=== PATIENT | male | born 1965 | race Caucasian/White ===

== ENCOUNTER 2020-01-15 12:47 | Emergency (ER) | payer SELFPAY ==
[~2020-01-15] VITALS: Ht 182.9 cm; Wt 86.4 kg
[2020-01-15] MEDS ORDERED: thiamine 100mg/ml 2ml inj. IV ONE (13:10)
[2020-01-15] MEDS ORDERED: folic acid 1mg/0.2ml inj IV ONE (13:10)
[2020-01-15] MEDS ORDERED: normal saline 1000ML IV soln IVB ONE (13:10)
[2020-01-15 13:37] LABS: BASOPHILS % (AUTO) 0.3 % (0-1); EOSINOPHILS % (AUTO) 0.2 % (0-6); HEMATOCRIT 45.3 % (42.0-52.0); HEMOGLOBIN 15.8 g/dl (14.0-17.9); LYMPHOCYTES # (AUTO) 0.5 X10'3 (1.1-4.8); LYMPHOCYTES % (AUTO) 5.7 % (21-51); MEAN CORPUSCULAR HGB CONC 34.9 g/dL (33.0-36.5); MEAN CORPUSCULAR VOLUME 97.3 FL (78-98); MEAN PLATELET VOLUME 8.2 FL (7.4-10.4); MONOCYTES # (AUTO) 0.6 X10'3 (0-0.9); NEUTROPHILS # (AUTO) 6.8 X10'3 (1.8-7.7); NEUTROPHILS % (AUTO) 85.8 % (42-75); PLATELET COUNT 118 X10'3 (140-440); RED BLOOD COUNT 4.66 X10'6 (4.70-6.10); RED CELL DISTRIBUTION WIDTH 13.8 % (11.5-14.5)
[2020-01-15 13:51] LABS: ALANINE AMINOTRANSFERASE 67 U/L (12-78); ALBUMIN 3.4 G/DL (3.4-5.0); ALBUMIN/GLOBULIN RATIO 0.7 (1.1-1.5); ALKALINE PHOSPHATASE 106 IU/L (46-116); ANION GAP 9 (8-16); BILIRUBIN,TOTAL 1.5 MG/DL (0.1-1.0); BLOOD UREA NITROGEN 3 MG/DL (7-18); BUN/CREATININE RATIO 3.3 (5.4-32.0); CALCIUM 10.1 MG/DL (8.5-10.1); CHLORIDE 88 MMOL/L (99-107); GLUCOSE 152 MG/DL (70-104); SODIUM 123 MMOL/L (135-145); TOTAL CARBON DIOXIDE 25.8 MMOL/L (24-32); TOTAL PROTEIN 8.1 G/DL (6.4-8.2); eGFR 88 ML/MIN
[2020-01-15 13:55] LABS: ASPARTATE AMINO TRANSFERASE 82 U/L (10-37); ETHANOL < 0.010 GM/DL (0.0-0.010); POTASSIUM 3.9 MMOL/L (3.5-5.1); TROPONIN I < 0.04 NG/ML (0.0-0.05)
[2020-01-15] MEDS ORDERED: metoprolol tartrate 1mg/ml inj IV ONE (14:20)
[2020-01-15 17:05] VITALS: BP 137/92
== END 2020-01-15 17:08 | disposition home or self-care (01) ==
LOC: ER 12:49
DX: I16.0 Hypertensive urgency (principal); F10.29 Alcohol dependence with unspecified alcohol-induced disorder; E87.1 Hypo-osmolality and hyponatremia; R55 Syncope and collapse; F17.200 Nicotine dependence, unspecified, uncomplicated
CPT/HCPCS: 36415; 71045; 80053; 80320; 82140; 82948; 84484; 85025; 93005; 96361; 96374; 96375; 99285; J3411; J3490; J7030

== ENCOUNTER 2020-10-25 20:08 | Inpatient (IN) | payer MEDICAID ==
[~2020-10-25] VITALS: Ht 182.9 cm; Wt 98.5 kg
--- NOTE | 2020-10-26 00:15 | NUR ---
PT FOUND PRONE AT BUS STOP. PER FAMILY, PT WAS WALKING, STOPPED, THEN TRIPPED OVER HIS FEET AND FELL DOWN. EMT LEBRON RSPONDED TO CALL AT BUS STOP AND REPORTED PT HAVING SEIZURE LIKE ACTIVITY FACEDOWN. PT HAS LAC TO FOREHEAD APPROX [id number]. SKIN TEAR TO RIGHT FOREARM. LARGE ABRASION TO RIGHT CHEEK. C-COLLAR PLACED. PLACED PT ON RNEY AND WHEELED TO ROOM FOR EVALUATION.
[2020-10-26] MEDS ORDERED: LORazepam 2 mg/ml vial IV STA (00:26)
[2020-10-26] MEDS ORDERED: LORazepam 2 mg/ml vial ONE (00:28)
[2020-10-26] MEDS ORDERED: levetiracetam inj 1,000 MG in normal saline 100ml IV soln 90 ML IV STA (00:31)
[2020-10-26] MEDS ORDERED: LIDOcaine 1% W/epiNEPHrine 1:200,000 10ml vial IJ ONE (00:35)
[2020-10-26] MEDS ORDERED: TETanus/Pertussis (Acell)/Diphther VAC/PF (Tdap-Adult) 0.5ml syringe IMVAC ONE (00:35)
[2020-10-26] MEDS ORDERED: LIDOcaine 1% W/epiNEPHrine 1:100,000 20ml vial IJ ONE (00:40)
[2020-10-26 00:52] LABS: ALANINE AMINOTRANSFERASE 61 U/L (12-78); ALBUMIN 3.2 G/DL (3.4-5.0); ALBUMIN/GLOBULIN RATIO 0.7 (1.1-1.5); ALKALINE PHOSPHATASE 133 IU/L (46-116); ANION GAP 17 (8-16); ASPARTATE AMINO TRANSFERASE 63 U/L (10-37); BILIRUBIN,TOTAL 2.5 MG/DL (0.1-1.0); BLOOD UREA NITROGEN 8 MG/DL (7-18); BUN/CREATININE RATIO 6.4 (5.4-32.0); CALCIUM 8.5 MG/DL (8.5-10.1); CHLORIDE 86 MMOL/L (99-107); CREATININE 1.25 MG/DL (0.60-1.10); GLUCOSE 123 MG/DL (70-104); LIPASE < 50 U/L (73-393); MAGNESIUM 2.1 MG/DL (1.5-2.4); POTASSIUM 3.4 MMOL/L (3.5-5.1); SODIUM 124 MMOL/L (135-145); TOTAL CARBON DIOXIDE 21.5 MMOL/L (24-32); TOTAL PROTEIN 7.6 G/DL (6.4-8.2); eGFR 60 ML/MIN
[2020-10-26 00:53] LABS: ETHANOL < 0.010 GM/DL (0.0-0.010)
[2020-10-26] MEDS ORDERED: LORazepam 2 mg/ml vial IV ONE ×3 (01:00→04:00)
--- NOTE | 2020-10-26 01:00 | NUR ---
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 He is combative and needs drugs.
[2020-10-26] MEDS ORDERED: haloperidol lactate 5mg/ml inj IM ONE ×2 (01:05→13:10)
[2020-10-26 01:24] LABS: BASOPHILS % (AUTO) 0.4 % (0-1); EOSINOPHILS % (AUTO) 0.2 % (0-6); HEMATOCRIT 51.8 % (42.0-52.0); HEMOGLOBIN 17.6 g/dl (14.0-17.9); LYMPHOCYTES # (AUTO) 1.4 X10'3 (1.1-4.8); LYMPHOCYTES % (AUTO) 13.6 % (21-51); MEAN CORPUSCULAR HEMOGLOBIN 33.8 PG (27.0-31.0); MEAN CORPUSCULAR HGB CONC 33.9 g/dL (33.0-36.5); MEAN CORPUSCULAR VOLUME 99.7 FL (78-98); MEAN PLATELET VOLUME 8.6 FL (7.4-10.4); MONOCYTES # (AUTO) 1.4 X10'3 (0-0.9); MONOCYTES % (AUTO) 14.2 % (2-12); NEUTROPHILS # (AUTO) 7.3 X10'3 (1.8-7.7); NEUTROPHILS % (AUTO) 71.6 % (42-75); PLATELET COUNT 88 X10'3 (140-440); WHITE BLOOD COUNT 10.1 X10'3 (4.5-11.0)
[2020-10-26] MEDS ORDERED: normal saline 1000ml 1,000 ML IV SCH ×2 (02:50→04:45)
[2020-10-26] MEDS ORDERED: thiamine inj. 100 MG in normal saline 100ml IV soln 100 ML IV ONE (04:10)
[2020-10-26] MEDS ORDERED: folic acid 1mg/0.2ml inj IV ONE (04:15)
[2020-10-26] MEDS ORDERED: thiamine 100mg/ml 2ml inj. IV ONE ×2 (04:15→04:45)
[2020-10-26 04:26] LABS: CLARITY,URINE CLEAR (Clear); COLOR,URINE YELLOW (Yellow); GLUCOSE, URINE NEGATIVE (Neg); KETONES,URINE TRACE mg/dl (Neg); LEUKOCYTE ESTERASE ,URINE NEGATIVE (Neg); NITRITES, URINE NEGATIVE (Neg); OCCULT BLOOD,URINE NEGATIVE (Neg); PROTEIN,URINE NEGATIVE (Neg)
[2020-10-26 04:38] LABS: UA COLLECTION TYPE FOLEY CATH
[2020-10-26 04:42] LABS: URINE AMPHETAMINE SCREEN NEGATIVE (Neg); URINE BARBITUATE SCREEN NEGATIVE (Neg); URINE BENZODIAZEPINES SCREEN NEGATIVE (Neg); URINE CANNABINOID SCREEN POSITIVE (Neg); URINE COCAINE SCREEN NEGATIVE (Neg); URINE METHADONE SCREEN NEGATIVE (Neg); URINE OPIATE SCREEN NEGATIVE (Neg); URINE PHENCYCLIDINE SCREEN NEGATIVE (Neg)
[2020-10-26] MEDS ORDERED: mag hydrox/Alum hydrox/simeth 30ml oral suspension PO PRN (04:45)
[2020-10-26] MEDS ORDERED: magnesium hydroxide 30ml (MOM) UD suspension PO PRN (04:45)
[2020-10-26] MEDS ORDERED: ondansetron/PF 4mg/2ml inj IV PRN (04:45)
[2020-10-26] MEDS ORDERED: HYDROcodone/acetaminophen 5mg/325mg tablet PO PRN (04:45)
[2020-10-26] MEDS ORDERED: diphenhydrAMINE 25mg capsule PO PRN (04:45)
[2020-10-26] MEDS ORDERED: ondansetron 4mg rapidly disintigrating tab PO PRN (04:45)
[2020-10-26] MEDS ORDERED: HYDROcodone/acetaminophen 10/325mg tab PO PRN (04:45)
[2020-10-26] MEDS ORDERED: potassium Cl 20 mEq SR tablet PO PRN ×2 (04:45)
[2020-10-26] MEDS ORDERED: morphine 2 MG/ML inj. syringe IV PRN ×2 (04:45)
[2020-10-26] MEDS ORDERED: bisacodyl 10mg suppository rectal RC PRN (04:45)
[2020-10-26] MEDS ORDERED: HYDROmorphone inj. 0.5 MG/0.5 ML DISP.SYRIN IV PRN (04:45)
[2020-10-26] MEDS ORDERED: haloperidol lactate 5mg/ml inj IM PRN (04:45)
[2020-10-26] MEDS ORDERED: diphenhydrAMINE 50 mg/ml inj IV PRN (04:45)
[2020-10-26] MEDS ORDERED: acetaminophen 325mg tablet PO PRN (04:45)
[2020-10-26] MEDS ORDERED: dextrose 50%-water 50ml dispensing syringe IV PRN (04:45)
[2020-10-26] MEDS ORDERED: potassium Cl 40MEQ/1/2NS 520ml 520 ML IV PRN (04:45)
[2020-10-26] MEDS ORDERED: sodium chloride 3% IV.soln 100 ML IV ONE (04:50)
[2020-10-26 05:24] LABS: HEMOGLOBIN A1C 5.4 % (4.5-6.2)
[2020-10-26] MEDS: LORazepam 2 mg/ml vial IV PRN ×8 (05:58→23:02)
[2020-10-26 06:15] LABS: ANION GAP 8 (8-16); BLOOD UREA NITROGEN 6 MG/DL (7-18); BUN/CREATININE RATIO 8.2 (5.4-32.0); CHLORIDE 101 MMOL/L (99-107); CREATINE KINASE 189 U/L (39-308); CREATININE 0.73 MG/DL (0.60-1.10); GLUCOSE 82 MG/DL (70-104); MAGNESIUM 1.5 MG/DL (1.5-2.4); PHOSPHORUS 2.5 MG/DL (2.3-4.5); SODIUM 133 MMOL/L (135-145); eGFR > 90 ML/MIN
[2020-10-26 06:20] LABS: POTASSIUM 2.4 MMOL/L (3.5-5.1)
[2020-10-26] MEDS ORDERED: calcium gluconate inj. 1 GM in normal saline 100ml IV soln 100 ML IV ONE (06:25)
[2020-10-26] MEDS ORDERED: CALCIUM GLUC 1gm/50ml NACL,iso 50 ML IV ONE (06:25)
[2020-10-26] MEDS ORDERED: magnesium 2GM in 50ml NS 50 ML IV ONE (06:25)
--- NOTE | 2020-10-26 07:34 | NUR ---
received order from dr. rojas for ij access.
[2020-10-26] MEDS ORDERED: ceFAZolin/D5W- 1GM premix 50 ML IV SCH (07:35)
--- NOTE | 2020-10-26 07:45 | NUR ---
Patient in ED. I have received report from VIKKI Camarena and had the opportunity to ask questions and assume patient care.
[2020-10-26] MEDS: docusate sod 100mg capsule PO SCH ×2 (08:00→19:25)
[2020-10-26] MEDS: K and/or MAG REPLACEMENT MC SCH ×2 (08:00→20:00)
[2020-10-26] MEDS ORDERED: folic acid inj. 2 MG, thiamine inj. 100 MG, MVI, adult No.4 with vit. K 10 ML in dextro... IV SCH ×4 (08:00)
[2020-10-26] MEDS: heparin, porcine 5000 units/ml vial SQ SCH ×2 (08:00→20:00)
[2020-10-26] MEDS ORDERED: etomidate 2mg/ml inj. ONE (08:00)
[2020-10-26] MEDS ORDERED: sod chloride 0.9% 10ml flush syringe IV ONE (08:00)
[2020-10-26 08:14] LABS: PARTIAL THROMBOPLASTIN TIME 31 SECONDS (22-32)
[2020-10-26 08:45] VITALS: BP 145/85
[2020-10-26] MEDS: levetiracetam inj 500 MG in normal saline 100ml IV soln 95 ML IV SCH ×2 (10:11→19:25)
[2020-10-26] MEDS: nicotine 21mg patch - 24 hr TD SCH (10:12)
[2020-10-26] MEDS: pantoprazole 40 MG vial IV SCH (10:12)
[2020-10-26 11:00] VITALS: BP 149/91
[2020-10-26 11:39] LABS: ABG BASE EXCESS -2.1 mmol/L (-2.0-2.0); ABG HCO3 24.2 mmol/L (22.0-26.0); ABG OXYGEN SATURATION 92.7 % (94-97); ABG PO2 (T) 73.5 mmHg (75.0-100.0); ALLEN'S TEST POSITIVE; FCOHb 2.2 % (0.0-3.9); FLOW 5 L/min; FMetHb 0.2 % (0.0-1.5); FO2Hb 90.5 % (94-97); TOTAL HEMOGLOBIN 15.5 G/dl (14.0-18.0)
[2020-10-26] MEDS ORDERED: PERFLUTREN PROTEIN-A MICROSPHR (Optison) 0.22 MG/ML 3ML VIAL IV PRN (12:05)
[2020-10-26 12:51] LABS: ANION GAP 10 (8-16); CHLORIDE 98 MMOL/L (99-107); GLUCOSE 99 MG/DL (70-104); POTASSIUM 3.8 MMOL/L (3.5-5.1); SODIUM 131 MMOL/L (135-145); TOTAL CARBON DIOXIDE 22.9 MMOL/L (24-32)
[2020-10-26 12:52] LABS: ALANINE AMINOTRANSFERASE 49 U/L (12-78); ALBUMIN 2.4 G/DL (3.4-5.0); ALBUMIN/GLOBULIN RATIO 0.7 (1.1-1.5); ALKALINE PHOSPHATASE 103 IU/L (46-116); ASPARTATE AMINO TRANSFERASE 49 U/L (10-37); BASOPHILS % (AUTO) 0.1 % (0-1); BILIRUBIN,TOTAL 1.7 MG/DL (0.1-1.0); BLOOD UREA NITROGEN 6 MG/DL (7-18); BUN/CREATININE RATIO 9.7 (5.4-32.0); CALCIUM 7.4 MG/DL (8.5-10.1); CREATININE 0.62 MG/DL (0.60-1.10); EOSINOPHILS % (AUTO) 0.2 % (0-6); HEMATOCRIT 44.9 % (42.0-52.0); LYMPHOCYTES # (AUTO) 0.7 X10'3 (1.1-4.8); LYMPHOCYTES % (AUTO) 7.9 % (21-51); MEAN CORPUSCULAR HEMOGLOBIN 33.7 PG (27.0-31.0); MEAN CORPUSCULAR HGB CONC 33.4 g/dL (33.0-36.5); MEAN PLATELET VOLUME 8.3 FL (7.4-10.4); MONOCYTES # (AUTO) 1.1 X10'3 (0-0.9); MONOCYTES % (AUTO) 11.9 % (2-12); NEUTROPHILS # (AUTO) 7.5 X10'3 (1.8-7.7); NEUTROPHILS % (AUTO) 79.9 % (42-75); PLATELET COUNT 73 X10'3 (140-440); RED BLOOD COUNT 4.44 X10'6 (4.70-6.10); TOTAL PROTEIN 5.9 G/DL (6.4-8.2); WHITE BLOOD COUNT 9.4 X10'3 (4.5-11.0); eGFR > 90 ML/MIN
--- NOTE | 2020-10-26 13:09 | NUR ---
Paged Dr. Tierney PAGER ID: [phone] MESSAGE: UBALDO Maya [id number]; patient agitated and trying to climb out of bed. Yani FLOREZ [phone]
[2020-10-26 15:00] VITALS: BP 153/87
[2020-10-26] MEDS: haloperidol lactate 5mg/ml inj IM PRN ×3 (15:24→22:47)
[2020-10-26 18:00] VITALS: BP 129/85
--- NOTE | 2020-10-26 18:15 | NUR ---
Patient in room PCU 3013. I have received report from Yani FLOREZ and had the opportunity to ask questions and assume patient care.
--- NOTE | 2020-10-26 18:24 | NUR ---
Problems reprioritized. Patient report given, questions answered & plan of care reviewed with VIKKI Carlin.
[2020-10-26] MEDS ORDERED: temazepam 15mg capsule PO PRN (21:00)
[2020-10-26 22:00] VITALS: BP 154/97
[2020-10-27] VITALS (15 sets, daily range): BP systolic 87–147; BP diastolic 56–104
--- NOTE | 2020-10-27 06:15 | NUR ---
Patient in room ICU 2042. I have received report from VIKKI Carlin and had the opportunity to ask questions and assume patient care.
[2020-10-27 07:43] LABS: BASOPHILS % (AUTO) 0.2 % (0-1); EOSINOPHILS % (AUTO) 0.2 % (0-6); HEMATOCRIT 43.7 % (42.0-52.0); HEMOGLOBIN 14.6 g/dl (14.0-17.9); LYMPHOCYTES # (AUTO) 0.5 X10'3 (1.1-4.8); LYMPHOCYTES % (AUTO) 4.5 % (21-51); MEAN CORPUSCULAR HEMOGLOBIN 33.6 PG (27.0-31.0); MEAN CORPUSCULAR HGB CONC 33.3 g/dL (33.0-36.5); MEAN PLATELET VOLUME 8.3 FL (7.4-10.4); MONOCYTES # (AUTO) 1.3 X10'3 (0-0.9); MONOCYTES % (AUTO) 11.7 % (2-12); NEUTROPHILS # (AUTO) 8.9 X10'3 (1.8-7.7); NEUTROPHILS % (AUTO) 83.4 % (42-75); PLATELET COUNT 74 X10'3 (140-440); RED BLOOD COUNT 4.33 X10'6 (4.70-6.10); RED CELL DISTRIBUTION WIDTH 16.1 % (11.5-14.5); WHITE BLOOD COUNT 10.7 X10'3 (4.5-11.0)
[2020-10-27 07:57] LABS: ALANINE AMINOTRANSFERASE 46 U/L (12-78); ALBUMIN 2.3 G/DL (3.4-5.0); ALBUMIN/GLOBULIN RATIO 0.7 (1.1-1.5); ALKALINE PHOSPHATASE 94 IU/L (46-116); AMYLASE 13 U/L (25-115); ANION GAP 12 (8-16); ASPARTATE AMINO TRANSFERASE 48 U/L (10-37); BILIRUBIN,TOTAL 1.4 MG/DL (0.1-1.0); BLOOD UREA NITROGEN 5 MG/DL (7-18); BUN/CREATININE RATIO 8.9 (5.4-32.0); CALCIUM 7.3 MG/DL (8.5-10.1); CHLORIDE 99 MMOL/L (99-107); CHOL/HDL RATIO 1.9 (0.00-4.99); CHOLESTEROL 89 MG/DL (0-200); CREATININE 0.56 MG/DL (0.60-1.10); GLUCOSE 61 MG/DL (70-104); HDL CHOLESTEROL 48 MG/DL (35-60); LDL CHOLESTEROL 20 MG/DL (50-100); LIPASE < 50 U/L (73-393); MAGNESIUM 2.2 MG/DL (1.5-2.4); PHOSPHORUS 3.2 MG/DL (2.3-4.5); SODIUM 135 MMOL/L (135-145); TOTAL CARBON DIOXIDE 24.4 MMOL/L (24-32); TOTAL PROTEIN 5.8 G/DL (6.4-8.2); TRIGLYCERIDES 64 MG/DL (20-135); eGFR > 90 ML/MIN
[2020-10-27 08:00] LABS: POTASSIUM 2.9 MMOL/L (3.5-5.1)
[2020-10-27] MEDS: heparin, porcine 5000 units/ml vial SQ SCH ×2 (08:00→20:00)
[2020-10-27] MEDS: docusate sod 100mg capsule PO SCH ×2 (08:00→20:00)
[2020-10-27] MEDS: K and/or MAG REPLACEMENT MC SCH (08:00)
--- NOTE | 2020-10-27 08:42 | NUR ---
Paged Dr. Tierney PAGER ID: [phone] MESSAGE: RE Alec Maya [id number]; potassium 2.9; respirations at 37, saturation 89. Placed back on bipap now 02sat 98% and paged RT to assess. Yani [id number]
[2020-10-27] MEDS: pantoprazole 40 MG vial IV SCH ×2 (08:49→09:45)
[2020-10-27] MEDS: levetiracetam inj 500 MG in normal saline 100ml IV soln 95 ML IV SCH ×2 (08:49→20:10)
[2020-10-27] MEDS: nicotine 21mg patch - 24 hr TD SCH (08:52)
[2020-10-27] MEDS ORDERED: flumazenil 0.1 mg/ml inj. IV ONE (09:25)
[2020-10-27 09:26] LABS: ABG BASE EXCESS -1.4 mmol/L (-2.0-2.0); ABG OXYGEN SATURATION 75.6 % (94-97); ABG PCO2 (T) 38.2 mmHg (35.0-48.0); ABG PO2 (T) 40.2 mmHg (75.0-100.0); ALLEN'S TEST POSITIVE; FCOHb 1.4 % (0.0-3.9); FMetHb 0.3 % (0.0-1.5); FO2Hb 74.3 % (94-97); TOTAL HEMOGLOBIN 15.8 G/dl (14.0-18.0)
[2020-10-27 09:39] LABS: ABG BASE EXCESS -1.1 mmol/L (-2.0-2.0); ABG OXYGEN SATURATION 96.3 % (94-97); ABG PO2 (T) 83.9 mmHg (75.0-100.0); ALLEN'S TEST POSITIVE; FCOHb 1.3 % (0.0-3.9); FMetHb 0.3 % (0.0-1.5); FO2Hb 94.8 % (94-97); TOTAL HEMOGLOBIN 15.7 G/dl (14.0-18.0)
[2020-10-27] MEDS ORDERED: magnesium Cl slow-release 64mg tablet PO PRN (09:45)
[2020-10-27] MEDS ORDERED: albuterol 2.5 MG/3 ML nebule NEB PRN (09:45)
[2020-10-27] MEDS ORDERED: magnesium 2GM in 50ml NS 50 ML IV PRN (09:45)
[2020-10-27] MEDS ORDERED: levetiracetam inj 500 MG in normal saline 100ml IV soln 95 ML IV SCH (09:45)
[2020-10-27] MEDS ORDERED: sodium phosphate inj. 15 MMOL in dextrose 5%-water 250 ML IV PRN (09:45)
[2020-10-27] MEDS ORDERED: dextrose 50%-water 50ml dispensing syringe IV PRN ×2 (09:45)
[2020-10-27] MEDS ORDERED: potassium Cl 20 mEq SR tablet PO PRN ×2 (09:45)
[2020-10-27] MEDS ORDERED: Neutra Phos packet PO PRN (09:45)
[2020-10-27] MEDS ORDERED: haloperidol lactate 5mg/ml inj IM PRN (09:45)
[2020-10-27] MEDS ORDERED: thiamine 100mg/ml 2ml inj. IV ONE (09:45)
[2020-10-27] MEDS ORDERED: magnesium 4gm in 100ml NS 100 ML IV PRN (09:45)
[2020-10-27] MEDS: K, MAG and/or Phos replacement - Verify level? MC SCH (09:45)
[2020-10-27] MEDS ORDERED: sodium phosphate inj. 30 MMOL in dextrose 5%-water 250 ML IV PRN (09:45)
--- NOTE | 2020-10-27 10:00 | NUR ---
Called report to Saumya in ICU. Patient will be transferred to .
--- NOTE | 2020-10-27 10:10 | NUR ---
Patient in room ICU 2042. I have received report from Saumya FLOREZ ICU charge and had the opportunity to ask questions and assume patient care.
--- NOTE | 2020-10-27 10:35 | NUR ---
[employer] did not scan this AM. Haldol was given at 0830. Administration did not save due to faulty computer equipment.
[2020-10-27] MEDS: sodium chloride 0.45% 1,000 ML IV SCH ×2 (10:41→23:05)
--- NOTE | 2020-10-27 10:52 | NUR ---
Tristin Consult: Pt admitted w/ seizures. Pt currently w/ laceration on forehead and skin tear on R arm s/p fall d/t seizures. No open wounds noted. Will continue to monitor. Addendum: 10/27/20 at [address] Amended: Links added.
[2020-10-27 10:55] LABS: AMMONIA < 10 UMOL/L (11-32)
[2020-10-27] MEDS ORDERED: thiamine inj. 100 MG in normal saline 100ml IV soln 100 ML IV ONE (11:00)
--- NOTE | 2020-10-27 11:02 | NUR ---
verbal order from MD pretty stop 1/2ns at 75. Start D5 1/2 NS at 75ML/HR.
[2020-10-27 11:35] LABS: LACTIC SEPSIS 0.9 MMOL/L (0.4-2.0)
[2020-10-27] MEDS: dextrose 5%-1/2 normal saline 1,000 ML IV SCH (12:25)
[2020-10-27] MEDS: potassium Cl 40MEQ/1/2NS 520ml 520 ML IV PRN ×2 (14:08→19:31)
[2020-10-27] MEDS ORDERED: iohexol 300mg/ml 100ml inj. ONE (14:44)
[2020-10-27] MEDS: ipratropium/albuterol 3ml nebule NEB SCH ×3 (15:22→23:13)
[2020-10-27 15:40] LABS: ABG BASE EXCESS 1.5 mmol/L (-2.0-2.0); ABG HCO3 24.1 mmol/L (22.0-26.0); ABG OXYGEN SATURATION 95.9 % (94-97); ABG PCO2 (T) 34.6 mmHg (35.0-48.0); ABG PO2 (T) 85.8 mmHg (75.0-100.0); FCOHb 0.6 % (0.0-3.9); FMetHb 0.4 % (0.0-1.5); FO2Hb 94.9 % (94-97); PATIENT TEMPERATURE 38.4; PEEP 5 cm H2O; RESPIRATORY RATE 18 b/min; TIDAL VOLUME 450 mL; TOTAL HEMOGLOBIN 14.7 G/dl (14.0-18.0)
[2020-10-27] MEDS ORDERED: acetaminophen 650mg rectal suppository RC PRN (17:15)
--- NOTE | 2020-10-27 17:16 | NUR ---
Telephone order for KUB to verify OG placement, and Start q6h PRN for fever above 101 Rectal suppository tylenol 650mg. To treat pt's temp of 38.5
--- NOTE | 2020-10-27 18:17 | NUR ---
Problems reprioritized. Patient report given, questions answered & plan of care reviewed with Alanis FLOREZ.
--- NOTE | 2020-10-27 18:20 | NUR ---
Patient in room ICU 2042. I have received report from VIKKI Atkins and had the opportunity to ask questions and assume patient care. Patient intubate/sedated and laying comfortably on hospital bed. Potassium replacement in progress, I will continue to monitor.
[2020-10-27] MEDS: midazolam 100mg in NS 100ml 100 ML IV PRN (20:13)
--- NOTE | 2020-10-27 22:42 | NUR ---
Patient is waking up and pulling on restraints, trying to sit up in bed. I have maxed out his Versed @20. I called Dr. Montes for orders and he advised me he would look at the chart and add new sedation orders.
[2020-10-27] MEDS: propofol 1000mg/100ml bottle 100 ML IV SCH (23:09)
[2020-10-28] VITALS (24 sets, daily range): BP systolic 81–116; BP diastolic 43–89
[2020-10-28] MEDS: dextrose 5%-1/2 normal saline 1,000 ML IV SCH ×2 (00:30→07:13)
[2020-10-28] MEDS: ipratropium/albuterol 3ml nebule NEB SCH ×6 (02:52→22:12)
[2020-10-28 03:14] LABS: BASOPHILS % (AUTO) 0.5 % (0-1); EOSINOPHILS # (AUTO) 0.1 X10'3 (0-0.9); HEMATOCRIT 37.7 % (42.0-52.0); HEMOGLOBIN 12.5 g/dl (14.0-17.9); LYMPHOCYTES # (AUTO) 0.9 X10'3 (1.1-4.8); LYMPHOCYTES % (AUTO) 9.3 % (21-51); MEAN CORPUSCULAR HEMOGLOBIN 33.8 PG (27.0-31.0); MEAN CORPUSCULAR HGB CONC 33.2 g/dL (33.0-36.5); MEAN CORPUSCULAR VOLUME 101.9 FL (78-98); MEAN PLATELET VOLUME 8.5 FL (7.4-10.4); MONOCYTES # (AUTO) 1.3 X10'3 (0-0.9); MONOCYTES % (AUTO) 13.8 % (2-12); NEUTROPHILS % (AUTO) 75.4 % (42-75); PLATELET COUNT 70 X10'3 (140-440); RED CELL DISTRIBUTION WIDTH 16.1 % (11.5-14.5); WHITE BLOOD COUNT 9.2 X10'3 (4.5-11.0)
[2020-10-28] MEDS: midazolam 100mg in NS 100ml 100 ML IV PRN ×4 (03:19→20:53)
[2020-10-28 03:25] LABS: ABG BASE EXCESS 0.2 mmol/L (-2.0-2.0); ABG OXYGEN SATURATION 95.4 % (94-97); ABG PCO2 (T) 38.9 mmHg (35.0-48.0); ABG PO2 (T) 90.5 mmHg (75.0-100.0); ALLEN'S TEST Yes; FCOHb 0.8 % (0.0-3.9); FMetHb 0.2 % (0.0-1.5); FO2Hb 94.4 % (94-97); PATIENT TEMPERATURE 38.7; PEEP 5 cm H2O; RESPIRATORY RATE 18 b/min; TIDAL VOLUME 450 mL; TOTAL HEMOGLOBIN 13.6 G/dl (14.0-18.0)
[2020-10-28 03:42] LABS: ALANINE AMINOTRANSFERASE 31 U/L (12-78); ALBUMIN 1.7 G/DL (3.4-5.0); ALBUMIN/GLOBULIN RATIO 0.5 (1.1-1.5); ALKALINE PHOSPHATASE 75 IU/L (46-116); AMYLASE 12 U/L (25-115); ANION GAP 9 (8-16); ASPARTATE AMINO TRANSFERASE 27 U/L (10-37); BLOOD UREA NITROGEN 5 MG/DL (7-18); BUN/CREATININE RATIO 6.9 (5.4-32.0); CALCIUM 7.2 MG/DL (8.5-10.1); CHLORIDE 103 MMOL/L (99-107); CREATININE 0.72 MG/DL (0.60-1.10); GLUCOSE 96 MG/DL (70-104); PHOSPHORUS 2.2 MG/DL (2.3-4.5); SODIUM 138 MMOL/L (135-145); TOTAL CARBON DIOXIDE 26.2 MMOL/L (24-32); TOTAL PROTEIN 4.9 G/DL (6.4-8.2); TRIGLYCERIDES 79 MG/DL (20-135); eGFR > 90 ML/MIN
[2020-10-28 03:45] LABS: LIPASE < 50 U/L (73-393)
[2020-10-28 03:48] LABS: PARTIAL THROMBOPLASTIN TIME 31 SECONDS (22-32)
--- NOTE | 2020-10-28 06:00 | NUR ---
Patient in room ICU 2042. I have received report from Alanis FLOREZ and had the opportunity to ask questions and assume patient care.
[2020-10-28] MEDS: potassium Cl 40MEQ/1/2NS 520ml 520 ML IV PRN ×2 (06:12→09:31)
--- NOTE | 2020-10-28 06:14 | NUR ---
Problems reprioritized. Patient report given, questions answered & plan of care reviewed with VIKKI Witt.
[2020-10-28] MEDS: K, MAG and/or Phos replacement - Verify level? MC SCH (07:04)
[2020-10-28] MEDS: heparin, porcine 5000 units/ml vial SQ SCH ×2 (07:05→20:00)
[2020-10-28] MEDS: docusate sod 100mg capsule PO SCH ×2 (07:05→20:54)
[2020-10-28] MEDS: levetiracetam inj 500 MG in normal saline 100ml IV soln 95 ML IV SCH ×2 (07:13→21:31)
[2020-10-28] MEDS: pantoprazole 40 MG vial IV SCH (07:13)
[2020-10-28] MEDS: nicotine 21mg patch - 24 hr TD SCH (07:14)
[2020-10-28] MEDS ORDERED: nicotine 21mg patch - 24 hr TD SCH (08:00)
[2020-10-28] MEDS ORDERED: NO HOME MEDS (09:16)
--- NOTE | 2020-10-28 10:10 | NUR ---
Informed Dr Razo of urine output low 10-15ml/hr and orangish red in color. No new orders at this time.
--- NOTE | 2020-10-28 10:49 | NUR ---
Initial: Pt intubated admit s/p seizure DX HTN and hyponatremia w/ hx COPD, HTN, and etoh w/ withdrawal seizures per MD note. Serum Na 138 this AM up from 124 on admit. Receiving D5/NS at 75ml/hr for 306kcals/day and propofol at 3.334 ml/hr for 88 kcals/day per EMR. OG in place during RD rounds this AM; TF recs below in case prolonged intubation. RD d/w RN regarding thiamin, folic, MVI for etoh hx if MD agreeable. LBM 10/27 receiving routine colace. Will continue to monitor for nutrition support needs on vent. Rec: 1. IF TF; Vital AF at 85ml/hr goal; to provide 2040ml volume, 2448 kcals, 1652ml free water, and 153g protein 2. IF TF; additional water flush per base remover given lower serum Na on admit 3. IF TF; PALB Q /; daily wts 4. thiamin, folic, MVI for etoh hx 5. routine bowel care 6. upon extubation advance diet as medically indicated to regular Addendum: 10/28/20 at [address] Amended: Links added.
[2020-10-28] MEDS ORDERED: thiamine inj. 100 MG, MVI, adult No.4 with vit. K 10 ML in dextrose 5% water 500ml 489 ML IV SCH ×3 (11:40)
[2020-10-28] MEDS: normal saline 1000ml 1,000 ML IV SCH ×2 (12:40→23:30)
[2020-10-28] MEDS: thiamine inj. 100 MG in normal saline 100ml IV soln 100 ML IV SCH (12:40)
[2020-10-28] MEDS: folic acid 1mg/0.2ml inj IV SCH (12:40)
[2020-10-28] MEDS: propofol 1000mg/100ml bottle 100 ML IV SCH ×2 (14:51→20:58)
--- NOTE | 2020-10-28 18:10 | NUR ---
Problems reprioritized. Patient report given, questions answered & plan of care reviewed with Pao FLOREZ.
--- NOTE | 2020-10-28 18:40 | NUR ---
I have received report and assumed care of pt, pt resting in bed rise and fall of chest cavity equile and symmetrical. Assessment complete.
--- NOTE | 2020-10-28 20:29 | NUR ---
Hs cares complete, Pt tolerated well
[2020-10-29] VITALS (24 sets, daily range): BP systolic 92–136; BP diastolic 56–94
[2020-10-29] MEDS: acetaminophen 325mg tablet PO PRN ×2 (00:27→09:36)
[2020-10-29] MEDS: ipratropium/albuterol 3ml nebule NEB SCH ×6 (01:59→22:58)
--- NOTE | 2020-10-29 02:00 | NUR ---
Patient in room ICU 2042. I have received report from Jacky FLOREZ and had the opportunity to ask questions and assume patient care.
[2020-10-29 03:23] LABS: BASOPHILS % (AUTO) 0.4 % (0-1); EOSINOPHILS # (AUTO) 0.1 X10'3 (0-0.9); EOSINOPHILS % (AUTO) 1.2 % (0-6); HEMATOCRIT 37.2 % (42.0-52.0); HEMOGLOBIN 12.4 g/dl (14.0-17.9); LYMPHOCYTES # (AUTO) 0.7 X10'3 (1.1-4.8); LYMPHOCYTES % (AUTO) 8.4 % (21-51); MEAN CORPUSCULAR HEMOGLOBIN 34.3 PG (27.0-31.0); MEAN CORPUSCULAR HGB CONC 33.5 g/dL (33.0-36.5); MEAN CORPUSCULAR VOLUME 102.4 FL (78-98); MEAN PLATELET VOLUME 8.2 FL (7.4-10.4); MONOCYTES # (AUTO) 1.5 X10'3 (0-0.9); MONOCYTES % (AUTO) 17.5 % (2-12); NEUTROPHILS # (AUTO) 6.3 X10'3 (1.8-7.7); NEUTROPHILS % (AUTO) 72.5 % (42-75); PLATELET COUNT 100 X10'3 (140-440); RED BLOOD COUNT 3.63 X10'6 (4.70-6.10); RED CELL DISTRIBUTION WIDTH 16.6 % (11.5-14.5); WHITE BLOOD COUNT 8.7 X10'3 (4.5-11.0)
[2020-10-29 03:30] LABS: PARTIAL THROMBOPLASTIN TIME 31 SECONDS (22-32)
[2020-10-29 03:45] LABS: ABG BASE EXCESS 0.5 mmol/L (-2.0-2.0); ABG HCO3 23.2 mmol/L (22.0-26.0); ABG OXYGEN SATURATION 95.6 % (94-97); ABG PCO2 (T) 31.7 mmHg (35.0-48.0); ABG PO2 (T) 77.6 mmHg (75.0-100.0); FCOHb 0.7 % (0.0-3.9); FMetHb 0.3 % (0.0-1.5); FO2Hb 94.6 % (94-97); PEEP 5 cm H2O; RESPIRATORY RATE 18 b/min; TIDAL VOLUME 450 mL; TOTAL HEMOGLOBIN 13.6 G/dl (14.0-18.0)
[2020-10-29 03:53] LABS: ALANINE AMINOTRANSFERASE 30 U/L (12-78); ALBUMIN 1.6 G/DL (3.4-5.0); ALBUMIN/GLOBULIN RATIO 0.5 (1.1-1.5); ALKALINE PHOSPHATASE 81 IU/L (46-116); AMYLASE 10 U/L (25-115); ANION GAP 6 (8-16); ASPARTATE AMINO TRANSFERASE 23 U/L (10-37); BILIRUBIN,TOTAL 0.9 MG/DL (0.1-1.0); BLOOD UREA NITROGEN 4 MG/DL (7-18); BUN/CREATININE RATIO 5.6 (5.4-32.0); CALCIUM 7.2 MG/DL (8.5-10.1); CHLORIDE 105 MMOL/L (99-107); CREATININE 0.71 MG/DL (0.60-1.10); GLUCOSE 101 MG/DL (70-104); LIPASE < 50 U/L (73-393); MAGNESIUM 1.6 MG/DL (1.5-2.4); PHOSPHORUS 2.7 MG/DL (2.3-4.5); POTASSIUM 3.6 MMOL/L (3.5-5.1); SODIUM 137 MMOL/L (135-145); eGFR > 90 ML/MIN
--- NOTE | 2020-10-29 04:30 | NUR ---
Video rounding done with Morro Mo, orders received
[2020-10-29] MEDS: midazolam 100mg in NS 100ml 100 ML IV PRN ×4 (05:07→23:33)
[2020-10-29 05:09] LABS: CREATINE KINASE 128 U/L (39-308)
[2020-10-29] MEDS: dexmedetomidin/NS 400mcg/100ml 100 ML IV SCH ×2 (05:23→16:15)
--- NOTE | 2020-10-29 06:00 | NUR ---
Problems reprioritized. Patient report given, questions answered & plan of care reviewed with SASKIA Gaspar RN.
[2020-10-29] MEDS: levetiracetam inj 500 MG in normal saline 100ml IV soln 95 ML IV SCH ×2 (07:56→21:59)
[2020-10-29] MEDS: docusate sod 100mg capsule PO SCH (08:00)
[2020-10-29] MEDS: K, MAG and/or Phos replacement - Verify level? MC SCH (08:00)
[2020-10-29] MEDS: folic acid 1mg/0.2ml inj IV SCH (08:31)
[2020-10-29] MEDS: thiamine inj. 100 MG in normal saline 100ml IV soln 100 ML IV SCH (08:31)
[2020-10-29] MEDS: nicotine 21mg patch - 24 hr TD SCH (09:35)
[2020-10-29] MEDS: pantoprazole 40 MG vial IV SCH (09:35)
[2020-10-29] MEDS: heparin, porcine 5000 units/ml vial SQ SCH ×2 (09:46→22:00)
--- NOTE | 2020-10-29 10:41 | NUR ---
TF Consult: Pt remains intubated w/ MAP 79 this AM during rounds and TF to start today per parent partner. Noted pt on propofol at 4.75ml/hr providing 125 kcals/day. TF recs below given pt needs on vent. Will monitor for TF tolerance and adjustment needs as medically indicated. LBM 10/28 receiving routine colace. Receiving thiamin and folic w/ MVI to start for etoh hx per MD. Will continue to monitor. Rec: 1. Continuous TF per MD using Vital AF at 85ml/hr goal; to provide 2040ml volume, 2448 kcals, 1652ml free water, and 153g protein 2. additional water flush per parent partner w/ low serum Na on admit; Na up to 137 this AM from initial 124 3. PALB Q /; daily wts 4. thiamin, folic, MVI for etoh hx 5. routine bowel care 6. upon extubation advance diet as medically indicated to regular Addendum: 10/29/20 at [address] Amended: Links added.
[2020-10-29] MEDS: normal saline 1000ml 1,000 ML IV SCH ×2 (11:43→17:40)
[2020-10-29 13:22] LABS: CLARITY,URINE SLIGHTLY CLOUDY (Clear); GLUCOSE, URINE NEGATIVE (Neg); KETONES,URINE 15 mg/dl (Neg); LEUKOCYTE ESTERASE ,URINE NEGATIVE (Neg); NITRITES, URINE POSITIVE (Neg); OCCULT BLOOD,URINE LARGE (Neg); PH,URINE 5.5 (4.8-8.0); PROTEIN,URINE TRACE mg/dl (Neg)
[2020-10-29 13:25] LABS: COLOR,URINE AMBER (Yellow); UA COLLECTION TYPE NON-SPECIFIED
[2020-10-29 13:37] LABS: BACTERIA,URINE 4+ /HPF (Neg); MUCUS STRANDS NONE SEEN /LPF (Neg); RBC,URINE 20-50 /HPF (0-2); SQUAMOUS EPITHELIAL CELL,UR FEW /LPF (FEW)
[2020-10-29] MEDS ORDERED: temazepam 15mg capsule OGT PRN (14:12)
[2020-10-29] MEDS ORDERED: mag hydrox/Alum hydrox/simeth 30ml oral suspension OGT PRN (14:14)
[2020-10-29] MEDS ORDERED: acetaminophen 325mg/10.15ml oral unit dose solution OGT PRN ×2 (14:15)
[2020-10-29] MEDS ORDERED: magnesium hydroxide 30ml (MOM) UD suspension OGT PRN (14:15)
[2020-10-29] MEDS ORDERED: ondansetron 4mg rapidly disintigrating tab OGT PRN (14:16)
[2020-10-29] MEDS: multi-vitamin w/minerals & ferrous gluconate 9 MG/15 ML oral LIQUID OGT SCH (14:32)
--- NOTE | 2020-10-29 18:30 | NUR ---
Patient in room ICU 2042. I have received report from Elizabeth FLOREZ and had the opportunity to ask questions and assume patient care.
[2020-10-29] MEDS: docusate sodium 100mg/10ml UD cup OGT SCH (21:59)
[2020-10-30] VITALS (23 sets, daily range): BP systolic 109–128; BP diastolic 45–85
[2020-10-30] MEDS: dexmedetomidin/NS 400mcg/100ml 100 ML IV SCH ×2 (01:16→13:20)
[2020-10-30] MEDS: propofol 1000mg/100ml bottle 100 ML IV SCH ×2 (02:23→16:18)
[2020-10-30 03:06] LABS: BASOPHILS % (AUTO) 0.4 % (0-1); EOSINOPHILS # (AUTO) 0.1 X10'3 (0-0.9); EOSINOPHILS % (AUTO) 1.5 % (0-6); HEMATOCRIT 40.5 % (42.0-52.0); HEMOGLOBIN 13.4 g/dl (14.0-17.9); LYMPHOCYTES # (AUTO) 0.7 X10'3 (1.1-4.8); LYMPHOCYTES % (AUTO) 7.1 % (21-51); MEAN CORPUSCULAR HEMOGLOBIN 33.8 PG (27.0-31.0); MEAN CORPUSCULAR HGB CONC 32.9 g/dL (33.0-36.5); MEAN CORPUSCULAR VOLUME 102.6 FL (78-98); MEAN PLATELET VOLUME 8.4 FL (7.4-10.4); MONOCYTES # (AUTO) 1.3 X10'3 (0-0.9); MONOCYTES % (AUTO) 14.2 % (2-12); NEUTROPHILS # (AUTO) 7.3 X10'3 (1.8-7.7); NEUTROPHILS % (AUTO) 76.8 % (42-75); PLATELET COUNT 141 X10'3 (140-440); RED BLOOD COUNT 3.95 X10'6 (4.70-6.10); RED CELL DISTRIBUTION WIDTH 16.9 % (11.5-14.5); WHITE BLOOD COUNT 9.5 X10'3 (4.5-11.0)
[2020-10-30 03:17] LABS: PARTIAL THROMBOPLASTIN TIME 34 SECONDS (22-32)
[2020-10-30] MEDS: ipratropium/albuterol 3ml nebule NEB SCH ×6 (03:24→23:13)
[2020-10-30 03:25] LABS: ALANINE AMINOTRANSFERASE 25 U/L (12-78); ALBUMIN 1.5 G/DL (3.4-5.0); ALBUMIN/GLOBULIN RATIO 0.4 (1.1-1.5); ALKALINE PHOSPHATASE 83 IU/L (46-116); AMYLASE 11 U/L (25-115); ANION GAP 6 (8-16); ASPARTATE AMINO TRANSFERASE 18 U/L (10-37); BILIRUBIN,TOTAL 0.7 MG/DL (0.1-1.0); BLOOD UREA NITROGEN 5 MG/DL (7-18); BUN/CREATININE RATIO 8.8 (5.4-32.0); CALCIUM 7.7 MG/DL (8.5-10.1); CHLORIDE 108 MMOL/L (99-107); CREATININE 0.57 MG/DL (0.60-1.10); GLUCOSE 122 MG/DL (70-104); LIPASE < 50 U/L (73-393); MAGNESIUM 1.9 MG/DL (1.5-2.4); PHOSPHORUS 3.2 MG/DL (2.3-4.5); POTASSIUM 3.5 MMOL/L (3.5-5.1); SODIUM 139 MMOL/L (135-145); TOTAL CARBON DIOXIDE 25.3 MMOL/L (24-32); TOTAL PROTEIN 5.4 G/DL (6.4-8.2); eGFR > 90 ML/MIN
[2020-10-30 03:49] LABS: ABG BASE EXCESS -0.5 mmol/L (-2.0-2.0); ABG HCO3 23.4 mmol/L (22.0-26.0); ABG OXYGEN SATURATION 95.4 % (94-97); ABG PCO2 (T) 34.7 mmHg (35.0-48.0); ABG PO2 (T) 74.5 mmHg (75.0-100.0); ALLEN'S TEST POSITIVE; FCOHb 1.2 % (0.0-3.9); FMetHb 0.1 % (0.0-1.5); FO2Hb 94.2 % (94-97); PATIENT TEMPERATURE 36.1; PEEP 5 cm H2O; RESPIRATORY RATE 16 b/min; TIDAL VOLUME 450 mL; TOTAL HEMOGLOBIN 13.9 G/dl (14.0-18.0)
[2020-10-30] MEDS: normal saline 1000ml 1,000 ML IV SCH ×2 (06:01→13:40)
--- NOTE | 2020-10-30 06:30 | NUR ---
Problems reprioritized. Patient report given, questions answered & plan of care reviewed with Elizabeth FLOREZ.
[2020-10-30] MEDS: pantoprazole 40 MG vial IV SCH (07:52)
[2020-10-30] MEDS: heparin, porcine 5000 units/ml vial SQ SCH ×2 (07:52→21:00)
[2020-10-30] MEDS: nicotine 21mg patch - 24 hr TD SCH (07:52)
[2020-10-30] MEDS: folic acid 1mg/0.2ml inj IV SCH (07:53)
[2020-10-30] MEDS: multi-vitamin w/minerals & ferrous gluconate 9 MG/15 ML oral LIQUID OGT SCH (07:53)
[2020-10-30] MEDS: thiamine inj. 100 MG in normal saline 100ml IV soln 100 ML IV SCH (07:53)
[2020-10-30] MEDS: K, MAG and/or Phos replacement - Verify level? MC SCH (08:00)
[2020-10-30] MEDS: docusate sodium 100mg/10ml UD cup OGT SCH ×2 (08:00→20:00)
[2020-10-30] MEDS: levetiracetam inj 500 MG in normal saline 100ml IV soln 95 ML IV SCH ×2 (08:53→20:57)
[2020-10-30] MEDS: midazolam 100mg in NS 100ml 100 ML IV PRN ×2 (10:49→16:17)
--- NOTE | 2020-10-30 18:30 | NUR ---
Patient in room ICU 2042. I have received report from Elizabeth FLOREZ and had the opportunity to ask questions and assume patient care.
[2020-10-31] VITALS (24 sets, daily range): BP systolic 115–154; BP diastolic 67–93
[2020-10-31] MEDS: midazolam 100mg in NS 100ml 100 ML IV PRN ×2 (01:12→19:03)
[2020-10-31] MEDS: dexmedetomidin/NS 400mcg/100ml 100 ML IV SCH (01:12)
[2020-10-31] MEDS: normal saline 1000ml 1,000 ML IV SCH ×3 (02:58→15:15)
[2020-10-31 03:30] LABS: ABG BASE EXCESS 0.6 mmol/L (-2.0-2.0); ABG HCO3 23.1 mmol/L (22.0-26.0); ABG OXYGEN SATURATION 94.1 % (94-97); ABG PCO2 (T) 32.3 mmHg (35.0-48.0); ABG PO2 (T) 74.7 mmHg (75.0-100.0); ALLEN'S TEST POSITIVE; FCOHb 0.3 % (0.0-3.9); FMetHb 0.3 % (0.0-1.5); FO2Hb 93.5 % (94-97); PEEP 5 cm H2O; RESPIRATORY RATE 16 b/min; TIDAL VOLUME 450 mL; TOTAL HEMOGLOBIN 13.3 G/dl (14.0-18.0)
[2020-10-31 04:18] LABS: PARTIAL THROMBOPLASTIN TIME 32 SECONDS (22-32)
[2020-10-31 04:23] LABS: ALANINE AMINOTRANSFERASE 22 U/L (12-78); ALBUMIN 1.4 G/DL (3.4-5.0); ALBUMIN/GLOBULIN RATIO 0.3 (1.1-1.5); ALKALINE PHOSPHATASE 95 IU/L (46-116); AMYLASE 13 U/L (25-115); ANION GAP 7 (8-16); ASPARTATE AMINO TRANSFERASE 22 U/L (10-37); BILIRUBIN,TOTAL 0.5 MG/DL (0.1-1.0); BLOOD UREA NITROGEN 4 MG/DL (7-18); BUN/CREATININE RATIO 5.8 (5.4-32.0); CALCIUM 7.4 MG/DL (8.5-10.1); CHLORIDE 108 MMOL/L (99-107); CREATININE 0.69 MG/DL (0.60-1.10); GLUCOSE 105 MG/DL (70-104); LIPASE < 50 U/L (73-393); PHOSPHORUS 2.2 MG/DL (2.3-4.5); PREALBUMIN 6.6 MG/DL (19-36); SODIUM 142 MMOL/L (135-145); TOTAL CARBON DIOXIDE 26.9 MMOL/L (24-32); TOTAL PROTEIN 5.5 G/DL (6.4-8.2); eGFR > 90 ML/MIN
[2020-10-31 04:26] LABS: BASOPHILS # (AUTO) 0.1 X10'3 (0-0.2); BASOPHILS % (AUTO) 0.5 % (0-1); EOSINOPHILS # (AUTO) 0.1 X10'3 (0-0.9); EOSINOPHILS % (AUTO) 0.9 % (0-6); HEMATOCRIT 36.9 % (42.0-52.0); HEMOGLOBIN 12.2 g/dl (14.0-17.9); LYMPHOCYTES % (AUTO) 8.6 % (21-51); MEAN CORPUSCULAR HEMOGLOBIN 33.6 PG (27.0-31.0); MEAN CORPUSCULAR VOLUME 101.8 FL (78-98); MEAN PLATELET VOLUME 7.7 FL (7.4-10.4); MONOCYTES % (AUTO) 17.6 % (2-12); NEUTROPHILS # (AUTO) 8.2 X10'3 (1.8-7.7); NEUTROPHILS % (AUTO) 72.4 % (42-75); PLATELET COUNT 206 X10'3 (140-440); RED BLOOD COUNT 3.63 X10'6 (4.70-6.10); RED CELL DISTRIBUTION WIDTH 16.4 % (11.5-14.5); WHITE BLOOD COUNT 11.3 X10'3 (4.5-11.0)
[2020-10-31] MEDS: potassium Cl 40MEQ/1/2NS 520ml 520 ML IV PRN ×2 (05:49→09:58)
--- NOTE | 2020-10-31 07:09 | NUR ---
Problems reprioritized. Patient report given, questions answered & plan of care reviewed with Roshan FLOREZ.
[2020-10-31] MEDS: ipratropium/albuterol 3ml nebule NEB SCH ×5 (07:28→23:30)
[2020-10-31] MEDS: multi-vitamin w/minerals & ferrous gluconate 9 MG/15 ML oral LIQUID OGT SCH (08:00)
[2020-10-31] MEDS: K, MAG and/or Phos replacement - Verify level? MC SCH (08:00)
[2020-10-31] MEDS: docusate sodium 100mg/10ml UD cup OGT SCH (08:38)
[2020-10-31] MEDS: nicotine 21mg patch - 24 hr TD SCH (08:39)
[2020-10-31] MEDS: pantoprazole 40 MG vial IV SCH (08:41)
[2020-10-31] MEDS: heparin, porcine 5000 units/ml vial SQ SCH ×2 (08:41→20:09)
[2020-10-31] MEDS: thiamine inj. 100 MG in normal saline 100ml IV soln 100 ML IV SCH (08:42)
[2020-10-31] MEDS: folic acid 1mg/0.2ml inj IV SCH (08:47)
[2020-10-31] MEDS: propofol 1000mg/100ml bottle 100 ML IV SCH ×3 (09:18→23:24)
[2020-10-31] MEDS: levetiracetam inj 500 MG in normal saline 100ml IV soln 95 ML IV SCH ×2 (09:31→20:09)
--- NOTE | 2020-10-31 12:57 | NUR ---
Fam Visit at bedside. Pt agitated about ETT. Explained that we can't take that out. Attempting to mouth words to spouse but hes unable to understand her also. Pt c/o pain. Meds adjusted for pain control. Explained to both we'll be going to CT for abdominal views as little is coming out of her colostomy. Addendum: 10/31/20 at 1738 by Roshan Govea RN Error, wrong pt
[2020-10-31] MEDS: AMPICILLIN IV SCH (16:00)
[2020-10-31] MEDS: NORMAL SALINE IV SCH (16:00)
--- NOTE | 2020-10-31 17:31 | NUR ---
Lt Arm Noted lt are is edematous and warm bellow the PICC line insertions site. Had CN eval arm. Appears this is likely from a previous A/C IV that may have infiltrated. Additional pillow under arm for elevation, will continue to monitor.
--- NOTE | 2020-10-31 18:30 | NUR ---
Patient in room ICU 2042. I have received report from Roshan FLOREZ and had the opportunity to ask questions and assume patient care.
[2020-11-01] VITALS (15 sets, daily range): BP systolic 121–153; BP diastolic 69–92
[2020-11-01] MEDS: AMPICILLIN IV SCH ×5 (00:34→22:25)
[2020-11-01] MEDS: NORMAL SALINE IV SCH ×5 (00:34→22:25)
[2020-11-01] MEDS: ipratropium/albuterol 3ml nebule NEB SCH ×6 (03:19→23:18)
[2020-11-01 03:42] LABS: ABG BASE EXCESS 1.9 mmol/L (-2.0-2.0); ABG OXYGEN SATURATION 94.9 % (94-97); ABG PCO2 (T) 31.5 mmHg (35.0-48.0); ABG PO2 (T) 78.4 mmHg (75.0-100.0); ALLEN'S TEST POSITIVE; FCOHb 0.4 % (0.0-3.9); FMetHb 0.4 % (0.0-1.5); FO2Hb 94.1 % (94-97); PATIENT TEMPERATURE 38.2; PEEP 5 cm H2O; RESPIRATORY RATE 16 b/min; TIDAL VOLUME 450 mL; TOTAL HEMOGLOBIN 12.8 G/dl (14.0-18.0)
[2020-11-01] MEDS ORDERED: dexmedetomidin/NS 400mcg/100ml 100 ML IV SCH (04:35)
[2020-11-01 06:31] LABS: PARTIAL THROMBOPLASTIN TIME 30 SECONDS (22-32)
[2020-11-01] MEDS: propofol 1000mg/100ml bottle 100 ML IV SCH ×2 (07:15→16:57)
[2020-11-01 07:21] LABS: BASOPHILS # (AUTO) 0.1 X10'3 (0-0.2); BASOPHILS % (AUTO) 0.8 % (0-1); EOSINOPHILS # (AUTO) 0.1 X10'3 (0-0.9); HEMOGLOBIN 12.2 g/dl (14.0-17.9); LYMPHOCYTES # (AUTO) 0.9 X10'3 (1.1-4.8); LYMPHOCYTES % (AUTO) 10.7 % (21-51); MEAN CORPUSCULAR HEMOGLOBIN 33.8 PG (27.0-31.0); MEAN CORPUSCULAR VOLUME 102.6 FL (78-98); MEAN PLATELET VOLUME 6.8 FL (7.4-10.4); MONOCYTES # (AUTO) 1.1 X10'3 (0-0.9); NEUTROPHILS % (AUTO) 74.5 % (42-75); PLATELET COUNT 236 X10'3 (140-440); RED CELL DISTRIBUTION WIDTH 16.9 % (11.5-14.5); WHITE BLOOD COUNT 8.1 X10'3 (4.5-11.0)
[2020-11-01] MEDS: multi-vitamin w/minerals & ferrous gluconate 9 MG/15 ML oral LIQUID OGT SCH (08:00)
[2020-11-01] MEDS: docusate sodium 100mg/10ml UD cup OGT SCH ×3 (08:00→20:00)
[2020-11-01] MEDS: K, MAG and/or Phos replacement - Verify level? MC SCH (08:00)
[2020-11-01 08:07] LABS: ALANINE AMINOTRANSFERASE 23 U/L (12-78); ALBUMIN 1.3 G/DL (3.4-5.0); ALBUMIN/GLOBULIN RATIO 0.3 (1.1-1.5); ALKALINE PHOSPHATASE 109 IU/L (46-116); ANION GAP 6 (8-16); ASPARTATE AMINO TRANSFERASE 26 U/L (10-37); BILIRUBIN,TOTAL 0.5 MG/DL (0.1-1.0); BLOOD UREA NITROGEN 6 MG/DL (7-18); BUN/CREATININE RATIO 12.5 (5.4-32.0); CALCIUM 7.6 MG/DL (8.5-10.1); CHLORIDE 107 MMOL/L (99-107); CREATININE 0.48 MG/DL (0.60-1.10); GLUCOSE 103 MG/DL (70-104); MAGNESIUM 1.9 MG/DL (1.5-2.4); PHOSPHORUS 2.4 MG/DL (2.3-4.5); POTASSIUM 3.5 MMOL/L (3.5-5.1); SODIUM 139 MMOL/L (135-145); TOTAL CARBON DIOXIDE 26.4 MMOL/L (24-32); TOTAL PROTEIN 5.4 G/DL (6.4-8.2); eGFR > 90 ML/MIN
[2020-11-01] MEDS: nicotine 21mg patch - 24 hr TD SCH (08:27)
[2020-11-01] MEDS: thiamine inj. 100 MG in normal saline 100ml IV soln 100 ML IV SCH (08:27)
[2020-11-01] MEDS: heparin, porcine 5000 units/ml vial SQ SCH ×2 (08:28→19:59)
[2020-11-01] MEDS: folic acid 1mg/0.2ml inj IV SCH (08:29)
[2020-11-01] MEDS: pantoprazole 40 MG vial IV SCH (08:30)
[2020-11-01] MEDS: levetiracetam inj 500 MG in normal saline 100ml IV soln 95 ML IV SCH ×2 (08:32→19:59)
[2020-11-01] MEDS: vancomycin/NS 1 GM ADD-VANTAGE 250 ML IV SCH ×2 (09:53→13:00)
--- NOTE | 2020-11-01 09:54 | NUR ---
US Lt Arm US of left arm started about 0800. Held IV meds until verified no occlusion at PICC site. Lt arm from AC to wrist is tight, reddened. Dr. Razo aware and findings discussed w/US tech.
--- NOTE | 2020-11-01 11:06 | NUR ---
Reassessment: Pt TF advanced to goal this AM GRV WNL. -100ml stool output past 24 hours per EMR. Noted propofol at 7.6ml/hr during rounds providing additional 201 kcals/day; within pt estimated kcal range and no need for EN adjustment at this time. IF propofol rates increased then EN adjustment may be required. Will continue to monitor for nutrition support needs on vent. Rec: 1. Continuous TF per MD using Vital AF at 85ml/hr goal; to provide 2040ml volume, 2448 kcals, 1652ml free water, and 153g protein 2. additional water flush per boiler assistant operator w/ low serum Na on admit; serum Na stable at 139 3. PALB Q /; daily wts 4. thiamin, folic, MVI for etoh hx 5. routine bowel care 6. upon extubation advance diet as medically indicated to regular Addendum: 11/01/20 at [address] Amended: Links added.
[2020-11-01] MEDS: normal saline 1000ml 1,000 ML IV SCH ×2 (12:18→15:40)
--- NOTE | 2020-11-01 18:11 | NUR ---
Patient in room ICU 2042. I have received report from VIKKI Islas and had the opportunity to ask questions and assume patient care.
--- NOTE | 2020-11-01 18:45 | NUR ---
Problems reprioritized. Patient report given, questions answered & plan of care reviewed with Raegan FLOREZ.
[2020-11-01] MEDS: lactobacillus rhamnosus 10,000 MMU CELLS/CAPSULE OGT SCH (19:59)
[2020-11-02] VITALS (13 sets, daily range): BP systolic 134–165; BP diastolic 78–116
[2020-11-02] MEDS: normal saline 1000ml 1,000 ML IV SCH ×3 (01:41→22:38)
[2020-11-02] MEDS: ipratropium/albuterol 3ml nebule NEB SCH ×6 (03:24→23:29)
[2020-11-02] MEDS: propofol 1000mg/100ml bottle 100 ML IV SCH (03:39)
[2020-11-02 03:42] LABS: ABG BASE EXCESS 3.9 mmol/L (-2.0-2.0); ABG HCO3 26.4 mmol/L (22.0-26.0); ABG OXYGEN SATURATION 95.9 % (94-97); ABG PCO2 (T) 32.5 mmHg (35.0-48.0); ABG PO2 (T) 79.5 mmHg (75.0-100.0); ALLEN'S TEST POSITIVE; FCOHb 0.5 % (0.0-3.9); FO2Hb 95.4 % (94-97); PATIENT TEMPERATURE 36.7; PEEP 5 cm H2O; TOTAL HEMOGLOBIN 12.3 G/dl (14.0-18.0)
[2020-11-02] MEDS ORDERED: VANCOMYCIN LEVEL IV ONE (04:30)
[2020-11-02] MEDS: AMPICILLIN IV SCH ×4 (04:51→22:38)
[2020-11-02] MEDS: NORMAL SALINE IV SCH ×4 (04:51→22:38)
[2020-11-02] MEDS: dexmedetomidin/NS 400mcg/100ml 100 ML IV SCH ×5 (05:56→22:38)
--- NOTE | 2020-11-02 06:07 | NUR ---
Problems reprioritized. Patient report given, questions answered & plan of care reviewed with Roshan FLOREZ.
--- NOTE | 2020-11-02 06:30 | NUR ---
Patient in room ICU 2042. I have received report from Raegan FLOREZ and had the opportunity to ask questions and assume patient care.
[2020-11-02 07:00] LABS: PARTIAL THROMBOPLASTIN TIME 27 SECONDS (22-32)
[2020-11-02 07:09] LABS: VANCOMYCIN,TROUGH 4.2 UG/ML (6.0-14.0)
[2020-11-02] MEDS: K, MAG and/or Phos replacement - Verify level? MC SCH (08:00)
[2020-11-02] MEDS: multi-vitamin w/minerals & ferrous gluconate 9 MG/15 ML oral LIQUID OGT SCH (08:00)
[2020-11-02] MEDS: docusate sodium 100mg/10ml UD cup OGT SCH ×2 (08:34→20:00)
[2020-11-02] MEDS: pantoprazole 40 MG vial IV SCH (08:34)
[2020-11-02] MEDS: lactobacillus rhamnosus 10,000 MMU CELLS/CAPSULE OGT SCH ×2 (08:34→20:00)
[2020-11-02] MEDS: heparin, porcine 5000 units/ml vial SQ SCH ×2 (08:35→19:49)
[2020-11-02] MEDS: folic acid 1mg/0.2ml inj IV SCH (08:35)
[2020-11-02] MEDS: thiamine inj. 100 MG in normal saline 100ml IV soln 100 ML IV SCH (08:35)
[2020-11-02] MEDS: nicotine 21mg patch - 24 hr TD SCH (08:35)
[2020-11-02] MEDS: levetiracetam inj 500 MG in normal saline 100ml IV soln 95 ML IV SCH ×2 (08:36→19:49)
[2020-11-02 10:06] LABS: ALANINE AMINOTRANSFERASE 30 U/L (12-78); ALBUMIN 1.5 G/DL (3.4-5.0); ALBUMIN/GLOBULIN RATIO 0.3 (1.1-1.5); ALKALINE PHOSPHATASE 120 IU/L (46-116); ANION GAP 13 (8-16); ASPARTATE AMINO TRANSFERASE 32 U/L (10-37); BILIRUBIN,TOTAL 0.5 MG/DL (0.1-1.0); BLOOD UREA NITROGEN 6 MG/DL (7-18); BUN/CREATININE RATIO 11.3 (5.4-32.0); CALCIUM 8.4 MG/DL (8.5-10.1); CHLORIDE 103 MMOL/L (99-107); CREATININE 0.53 MG/DL (0.60-1.10); GLUCOSE 97 MG/DL (70-104); MAGNESIUM 1.7 MG/DL (1.5-2.4); PHOSPHORUS 2.3 MG/DL (2.3-4.5); POTASSIUM 3.3 MMOL/L (3.5-5.1); SODIUM 141 MMOL/L (135-145); TOTAL CARBON DIOXIDE 24.8 MMOL/L (24-32); TOTAL PROTEIN 6.1 G/DL (6.4-8.2); eGFR > 90 ML/MIN
--- NOTE | 2020-11-02 12:39 | NUR ---
MD Visit: Dr. Cali to see pt. Met weaning criteria and ordered extubation. RT notified. Pt more anxious but I am able to talk him down
--- NOTE | 2020-11-02 13:30 | NUR ---
Post extubation note Pt is confused. requesting his cell phone. Pulling at urine cath. Pt is weak at this point. Resp status is good. Strong cough, moving secretions but swallowing them. Suction provided to him for his use as able.
--- NOTE | 2020-11-02 18:18 | NUR ---
Patient in room ICU 2042. I have received report from Roshan FLOREZ and had the opportunity to ask questions and assume patient care.
--- NOTE | 2020-11-02 18:24 | NUR ---
Problems reprioritized. Patient report given, questions answered & plan of care reviewed with Raegan FLOREZ.
--- NOTE | 2020-11-02 23:12 | NUR ---
Pt was able to swallow honey-thickened water with no S/S of aspiration. Addendum: 11/02/20 at 2314 by Raegan Sales RN Amended: Links added.
[2020-11-03] VITALS (11 sets, daily range): BP systolic 127–153; BP diastolic 68–91
[2020-11-03] MEDS: dexmedetomidin/NS 400mcg/100ml 100 ML IV SCH ×3 (01:09→07:06)
[2020-11-03] MEDS: ipratropium/albuterol 3ml nebule NEB SCH ×6 (03:09→23:17)
[2020-11-03] MEDS: AMPICILLIN IV SCH ×4 (04:15→23:33)
[2020-11-03] MEDS: NORMAL SALINE IV SCH ×4 (04:15→23:33)
--- NOTE | 2020-11-03 06:30 | NUR ---
Patient in room ICU 2042. I have received report from VIKKI Carlin and had the opportunity to ask questions and assume patient care.vikki Carlin
[2020-11-03] MEDS: normal saline 1000ml 1,000 ML IV SCH ×2 (07:40→22:49)
[2020-11-03] MEDS: K, MAG and/or Phos replacement - Verify level? MC SCH (08:00)
[2020-11-03] MEDS: nicotine 21mg patch - 24 hr TD SCH (08:00)
[2020-11-03] MEDS: folic acid 1mg/0.2ml inj IV SCH (08:00)
[2020-11-03] MEDS: multi-vitamin w/minerals & ferrous gluconate 9 MG/15 ML oral LIQUID OGT SCH (08:00)
[2020-11-03] MEDS: pantoprazole 40 MG vial IV SCH (08:04)
[2020-11-03] MEDS: heparin, porcine 5000 units/ml vial SQ SCH ×2 (08:58→22:52)
[2020-11-03] MEDS: levetiracetam inj 500 MG in normal saline 100ml IV soln 95 ML IV SCH ×2 (08:58→22:50)
[2020-11-03] MEDS: lactobacillus rhamnosus 10,000 MMU CELLS/CAPSULE OGT SCH ×2 (08:59→22:51)
[2020-11-03] MEDS: amLODIPine 5mg tablet PO SCH (08:59)
[2020-11-03] MEDS: thiamine inj. 100 MG in normal saline 100ml IV soln 100 ML IV SCH (08:59)
[2020-11-03] MEDS: docusate sodium 100mg/10ml UD cup OGT SCH ×2 (08:59→22:52)
--- NOTE | 2020-11-03 16:11 | NUR ---
Problems reprioritized. Patient report given, questions answered & plan of care reviewed with Goldy PUBLIC RELATIONS PROFESSIONAL.
--- NOTE | 2020-11-03 16:45 | NUR ---
pt transferred to room 3025B with all belongings,jaret Winslow at bedside
--- NOTE | 2020-11-03 17:30 | NUR ---
ICU called trish missing ampicillin dose. Colleen FLOREZ states that pharmacy will bring it.
[2020-11-04 03:00] VITALS: BP 158/84
[2020-11-04] MEDS: ipratropium/albuterol 3ml nebule NEB SCH ×6 (03:13→23:54)
[2020-11-04] MEDS: normal saline 1000ml 1,000 ML IV SCH ×3 (03:40→23:40)
[2020-11-04] MEDS: AMPICILLIN IV SCH ×4 (05:00→23:20)
[2020-11-04] MEDS: NORMAL SALINE IV SCH ×4 (05:00→23:20)
[2020-11-04 06:25] LABS: PARTIAL THROMBOPLASTIN TIME 28 SECONDS (22-32)
[2020-11-04 06:35] LABS: ALANINE AMINOTRANSFERASE 41 U/L (12-78); ALBUMIN 1.7 G/DL (3.4-5.0); ALBUMIN/GLOBULIN RATIO 0.4 (1.1-1.5); ALKALINE PHOSPHATASE 101 IU/L (46-116); ANION GAP 14 (8-16); ASPARTATE AMINO TRANSFERASE 44 U/L (10-37); BILIRUBIN,TOTAL 0.9 MG/DL (0.1-1.0); BLOOD UREA NITROGEN 6 MG/DL (7-18); BUN/CREATININE RATIO 11.1 (5.4-32.0); CALCIUM 8.5 MG/DL (8.5-10.1); CHLORIDE 101 MMOL/L (99-107); CREATININE 0.54 MG/DL (0.60-1.10); GLUCOSE 85 MG/DL (70-104); MAGNESIUM 1.9 MG/DL (1.5-2.4); SODIUM 141 MMOL/L (135-145); TOTAL CARBON DIOXIDE 26.1 MMOL/L (24-32); TOTAL PROTEIN 6.5 G/DL (6.4-8.2); TRIGLYCERIDES 144 MG/DL (20-135); eGFR > 90 ML/MIN
[2020-11-04 06:54] LABS: POTASSIUM 2.7 MMOL/L (3.5-5.1)
[2020-11-04 07:00] VITALS: BP 177/101
--- NOTE | 2020-11-04 07:20 | NUR ---
Page Sent promotional table spacer PAGER ID: [phone] MESSAGE: [id number] Zulma. Critical K 2.7. Will replace per protocol. Erika [phone]
[2020-11-04] MEDS: folic acid 1mg/0.2ml inj IV SCH (07:55)
[2020-11-04] MEDS: levetiracetam inj 500 MG in normal saline 100ml IV soln 95 ML IV SCH ×2 (07:56→17:20)
[2020-11-04] MEDS: pantoprazole 40 MG vial IV SCH (07:58)
[2020-11-04] MEDS: thiamine inj. 100 MG in normal saline 100ml IV soln 100 ML IV SCH (07:59)
[2020-11-04] MEDS: K, MAG and/or Phos replacement - Verify level? MC SCH (07:59)
[2020-11-04] MEDS: multi-vitamin w/minerals & ferrous gluconate 9 MG/15 ML oral LIQUID OGT SCH (08:00)
[2020-11-04] MEDS: docusate sodium 100mg/10ml UD cup OGT SCH ×2 (08:00→19:30)
[2020-11-04] MEDS: amLODIPine 5mg tablet PO SCH (08:00)
[2020-11-04] MEDS: lactobacillus rhamnosus 10,000 MMU CELLS/CAPSULE OGT SCH ×2 (08:00→19:32)
[2020-11-04] MEDS: heparin, porcine 5000 units/ml vial SQ SCH ×2 (08:01→19:31)
[2020-11-04] MEDS: nicotine 21mg patch - 24 hr TD SCH (08:01)
[2020-11-04] MEDS ORDERED: magnesium 4gm in 100ml NS 100 ML IV PRN (09:05)
[2020-11-04] MEDS ORDERED: magnesium Cl slow-release 64mg tablet PO PRN (09:05)
[2020-11-04 11:00] VITALS: BP 158/83
--- NOTE | 2020-11-04 11:46 | NUR ---
Reassessment: Pt extubated 11/02 and placed on Puree diet 11/03 w/ documented 50-75% meal intake that day. Communicated w/ RN that pt may need BSS eval to be able to advance to Regular diet. LBM 11/03. Will continue to monitor PO trends s/p extubation and make recommendations as appropriate. Rec: 1. Continue Puree diet as tolerated; texture per ST recs 2. thiamin, folic, MVI for etoh hx 3. routine bowel care 4. Weekly wts Addendum: 11/04/20 at [address] Amended: Links added.
[2020-11-04 12:35] VITALS: BP 178/97
--- NOTE | 2020-11-04 12:40 | NUR ---
Page Sent promotional table spacer PAGER ID: [phone] MESSAGE: [id number] Aldan. I found patient in postictal state. He was staring off into space and non-responsive. PT vitals HR 104, RR 24, BP 178/97. No PRN for BP. Erika [phone]
[2020-11-04 15:00] VITALS: BP 176/100
[2020-11-04] MEDS: hydrALAZINE 20mg/ml inj. IV PRN ×2 (15:25→23:34)
[2020-11-04] MEDS: LORazepam 2 mg/ml vial IV PRN (15:25)
--- NOTE | 2020-11-04 16:49 | NUR ---
Patient found post ictal twice today once by me and once by my discharge door operator [place]. Dr. Huitron gave telephone orders to give the already ordered ativan, get an MRI of the head w/o contrast, and to give PRN hydralaine for SBP >160 and or a DBP >90 10 mg IV Q4.
--- NOTE | 2020-11-04 16:52 | NUR ---
pizza cook requested new BSS eval due to patient on puree foods
[2020-11-04] MEDS: potassium Cl 20 mEq SR tablet OGT PRN (17:20)
[2020-11-04 18:00] VITALS: BP 198/98
--- NOTE | 2020-11-04 18:18 | NUR ---
Problems reprioritized. Patient report given, questions answered & plan of care reviewed with Kathya FLOREZ.
[2020-11-04] MEDS ORDERED: metoprolol tartrate 1mg/ml inj IV ONE (18:30)
--- NOTE | 2020-11-04 18:37 | NUR ---
Patient in room PCU 3025. I have received report from Erika FLOREZ and had the opportunity to ask questions and assume patient care.
[2020-11-04] MEDS: K and/or MAG REPLACEMENT MC SCH (19:38)
--- NOTE | 2020-11-04 19:55 | NUR ---
pt refused to eat any pureed food. Dr. Huitron at bedside, advised pt of necessity of swallow study. Pt still refused.
[2020-11-05] VITALS: BP 175/93
[2020-11-05] MEDS: ipratropium/albuterol 3ml nebule NEB SCH ×6 (02:56→23:30)
[2020-11-05] MEDS: AMPICILLIN IV SCH ×3 (04:43→16:27)
[2020-11-05] MEDS: NORMAL SALINE IV SCH ×3 (04:43→16:27)
--- NOTE | 2020-11-05 06:23 | NUR ---
Problems reprioritized. Patient report given, questions answered & plan of care reviewed with Erika FLOREZ.
[2020-11-05 06:27] LABS: PARTIAL THROMBOPLASTIN TIME 28 SECONDS (22-32)
[2020-11-05 06:46] LABS: ALANINE AMINOTRANSFERASE 48 U/L (12-78); ALBUMIN 1.8 G/DL (3.4-5.0); ALBUMIN/GLOBULIN RATIO 0.4 (1.1-1.5); ALKALINE PHOSPHATASE 99 IU/L (46-116); ANION GAP 16 (8-16); ASPARTATE AMINO TRANSFERASE 46 U/L (10-37); BILIRUBIN,TOTAL 0.8 MG/DL (0.1-1.0); BLOOD UREA NITROGEN 4 MG/DL (7-18); BUN/CREATININE RATIO 7.4 (5.4-32.0); CALCIUM 8.5 MG/DL (8.5-10.1); CHLORIDE 102 MMOL/L (99-107); CREATININE 0.54 MG/DL (0.60-1.10); GLUCOSE 72 MG/DL (70-104); MAGNESIUM 1.9 MG/DL (1.5-2.4); PHOSPHORUS 4.1 MG/DL (2.3-4.5); SODIUM 141 MMOL/L (135-145); TOTAL CARBON DIOXIDE 22.6 MMOL/L (24-32); TOTAL PROTEIN 6.8 G/DL (6.4-8.2); eGFR > 90 ML/MIN
[2020-11-05 06:47] LABS: BASOPHILS # (AUTO) 0.1 X10'3 (0-0.2); BASOPHILS % (AUTO) 0.4 % (0-1); EOSINOPHILS % (AUTO) 0.3 % (0-6); HEMOGLOBIN 11.7 g/dl (14.0-17.9); LYMPHOCYTES % (AUTO) 7.4 % (21-51); MEAN CORPUSCULAR HEMOGLOBIN 33.9 PG (27.0-31.0); MEAN CORPUSCULAR HGB CONC 33.5 g/dL (33.0-36.5); MEAN CORPUSCULAR VOLUME 101.2 FL (78-98); MEAN PLATELET VOLUME 6.8 FL (7.4-10.4); MONOCYTES # (AUTO) 1.2 X10'3 (0-0.9); MONOCYTES % (AUTO) 8.2 % (2-12); NEUTROPHILS # (AUTO) 11.8 X10'3 (1.8-7.7); NEUTROPHILS % (AUTO) 83.7 % (42-75); PLATELET COUNT 520 X10'3 (140-440); RED BLOOD COUNT 3.45 X10'6 (4.70-6.10); RED CELL DISTRIBUTION WIDTH 16.1 % (11.5-14.5); WHITE BLOOD COUNT 14.1 X10'3 (4.5-11.0)
[2020-11-05 06:51] LABS: POTASSIUM 2.9 MMOL/L (3.5-5.1)
[2020-11-05 07:00] VITALS: BP 171/84
[2020-11-05] MEDS: K and/or MAG REPLACEMENT MC SCH ×2 (08:00→20:00)
[2020-11-05] MEDS: multi-vitamin w/minerals & ferrous gluconate 9 MG/15 ML oral LIQUID OGT SCH (08:00)
[2020-11-05] MEDS: K, MAG and/or Phos replacement - Verify level? MC SCH (08:00)
--- NOTE | 2020-11-05 08:24 | NUR ---
Page to PICC RN [id number] Zulma. Pt needs PIV for seizure meds MIRACLE. Erika [phone]
[2020-11-05] MEDS: normal saline 1000ml 1,000 ML IV SCH ×2 (09:40→21:21)
[2020-11-05 11:00] VITALS: BP 174/97
[2020-11-05] MEDS: docusate sodium 100mg/10ml UD cup OGT SCH ×2 (11:20→20:38)
[2020-11-05] MEDS: lactobacillus rhamnosus 10,000 MMU CELLS/CAPSULE OGT SCH ×2 (11:21→20:38)
[2020-11-05] MEDS: potassium Cl 20 mEq SR tablet OGT PRN (11:21)
[2020-11-05] MEDS: amLODIPine 5mg tablet PO SCH (11:22)
[2020-11-05] MEDS: pantoprazole 40 MG vial IV SCH (11:23)
[2020-11-05] MEDS: nicotine 21mg patch - 24 hr TD SCH (11:23)
[2020-11-05] MEDS: heparin, porcine 5000 units/ml vial SQ SCH ×2 (11:24→20:37)
[2020-11-05] MEDS: folic acid 1mg/0.2ml inj IV SCH (11:26)
[2020-11-05] MEDS: thiamine inj. 100 MG in normal saline 100ml IV soln 100 ML IV SCH (11:27)
[2020-11-05] MEDS: levetiracetam inj 500 MG in normal saline 100ml IV soln 95 ML IV SCH ×2 (11:28→20:37)
[2020-11-05] MEDS: LORazepam 2 mg/ml vial IV PRN (12:00)
--- NOTE | 2020-11-05 13:06 | NUR ---
PAGER ID: [phone] MESSAGE: JULIANA ON [phone], TELE NEURO CALLED REGARDING [id number], HIS CALL BACK NUMBER IS [phone], THANK YOU
--- NOTE | 2020-11-05 14:38 | NUR ---
Meds given late today due to being out of ratio and high acuity patients and most of my patients had bad IVs this am .
[2020-11-05 16:00] VITALS: BP 168/93
[2020-11-05] MEDS: potassium Cl 40MEQ/1/2NS 520ml 520 ML IV PRN ×2 (17:22→21:20)
[2020-11-05 18:00] VITALS: BP 176/86
--- NOTE | 2020-11-05 18:21 | NUR ---
Problems reprioritized. Patient report given, questions answered & plan of care reviewed with Cora FLOREZ.
--- NOTE | 2020-11-05 18:41 | NUR ---
Patient in room PCU 3025B. I have received report from VIKKI James and had the opportunity to ask questions and assume patient care.
--- NOTE | 2020-11-05 18:52 | NUR ---
Nicotine patch was removed for patient to get MRI. Patient ended up not going today. Nicotine patch was not reapplied today.
[2020-11-05 22:00] VITALS: BP 160/93
[2020-11-05] MEDS: vancomycin/NS 1 GM ADD-VANTAGE 250 ML IV SCH (23:53)
[2020-11-05] MEDS: piperacillin/tazo 3.375gm/50ml 50 ML IV SCH (23:54)
[2020-11-06 02:00] VITALS: BP 158/87
[2020-11-06] MEDS: LORazepam 2 mg/ml vial IV PRN ×3 (02:02→21:48)
[2020-11-06] MEDS: ipratropium/albuterol 3ml nebule NEB SCH ×6 (02:42→22:57)
[2020-11-06 06:00] VITALS: BP 169/91
--- NOTE | 2020-11-06 06:28 | NUR ---
Problems reprioritized. Patient report given, questions answered & plan of care reviewed with VIKKI Vilelgas.
--- NOTE | 2020-11-06 06:30 | NUR ---
Patient in room PCU 3025. I have received report from Cora FLOREZ and had the opportunity to ask questions and assume patient care.
[2020-11-06 06:50] LABS: BASOPHILS # (AUTO) 0.1 X10'3 (0-0.2); BASOPHILS % (AUTO) 0.9 % (0-1); EOSINOPHILS # (AUTO) 0.1 X10'3 (0-0.9); EOSINOPHILS % (AUTO) 1.1 % (0-6); HEMATOCRIT 34.1 % (42.0-52.0); HEMOGLOBIN 11.3 g/dl (14.0-17.9); LYMPHOCYTES # (AUTO) 1.2 X10'3 (1.1-4.8); LYMPHOCYTES % (AUTO) 10.4 % (21-51); MEAN CORPUSCULAR HEMOGLOBIN 33.9 PG (27.0-31.0); MEAN CORPUSCULAR HGB CONC 33.2 g/dL (33.0-36.5); MEAN CORPUSCULAR VOLUME 102.1 FL (78-98); MEAN PLATELET VOLUME 6.6 FL (7.4-10.4); MONOCYTES % (AUTO) 8.2 % (2-12); NEUTROPHILS # (AUTO) 9.3 X10'3 (1.8-7.7); NEUTROPHILS % (AUTO) 79.4 % (42-75); PLATELET COUNT 520 X10'3 (140-440); RED BLOOD COUNT 3.34 X10'6 (4.70-6.10); RED CELL DISTRIBUTION WIDTH 16.7 % (11.5-14.5); WHITE BLOOD COUNT 11.8 X10'3 (4.5-11.0)
[2020-11-06] MEDS: vancomycin/NS 1 GM ADD-VANTAGE 250 ML IV SCH ×2 (07:00→16:01)
[2020-11-06 07:01] LABS: PARTIAL THROMBOPLASTIN TIME 28 SECONDS (22-32)
[2020-11-06 07:17] LABS: HIV ANTIBODY 1&2 RAPID NON-REACTIVE (Neg)
[2020-11-06 07:35] LABS: ALANINE AMINOTRANSFERASE 58 U/L (12-78); ALBUMIN 1.7 G/DL (3.4-5.0); ALBUMIN/GLOBULIN RATIO 0.3 (1.1-1.5); ALKALINE PHOSPHATASE 83 IU/L (46-116); ANION GAP 11 (8-16); ASPARTATE AMINO TRANSFERASE 51 U/L (10-37); BILIRUBIN,TOTAL 0.8 MG/DL (0.1-1.0); BLOOD UREA NITROGEN 4 MG/DL (7-18); BUN/CREATININE RATIO 7.4 (5.4-32.0); CALCIUM 8.5 MG/DL (8.5-10.1); CHLORIDE 101 MMOL/L (99-107); CREATININE 0.54 MG/DL (0.60-1.10); GLUCOSE 68 MG/DL (70-104); PHOSPHORUS 3.8 MG/DL (2.3-4.5); POTASSIUM 3.1 MMOL/L (3.5-5.1); SODIUM 135 MMOL/L (135-145); TOTAL CARBON DIOXIDE 23.2 MMOL/L (24-32); TOTAL PROTEIN 6.6 G/DL (6.4-8.2); eGFR > 90 ML/MIN
[2020-11-06] MEDS: K and/or MAG REPLACEMENT MC SCH ×2 (08:00→20:00)
[2020-11-06] MEDS: multi-vitamin w/minerals & ferrous gluconate 9 MG/15 ML oral LIQUID OGT SCH (08:00)
[2020-11-06] MEDS: K, MAG and/or Phos replacement - Verify level? MC SCH (08:00)
[2020-11-06] MEDS: docusate sodium 100mg/10ml UD cup OGT SCH ×2 (08:00→20:00)
[2020-11-06] MEDS: hydrALAZINE 20mg/ml inj. IV PRN ×3 (09:45→20:14)
[2020-11-06] MEDS: heparin, porcine 5000 units/ml vial SQ SCH ×2 (09:45→19:54)
[2020-11-06] MEDS: pantoprazole 40 MG vial IV SCH (09:46)
[2020-11-06] MEDS: potassium Cl 20 mEq SR tablet OGT PRN ×2 (09:46→19:53)
[2020-11-06] MEDS: lactobacillus rhamnosus 10,000 MMU CELLS/CAPSULE OGT SCH ×2 (09:46→19:53)
[2020-11-06] MEDS: amLODIPine 5mg tablet PO SCH (09:47)
[2020-11-06] MEDS: nicotine 21mg patch - 24 hr TD SCH (09:49)
[2020-11-06] MEDS: levetiracetam inj 1,000 MG in normal saline 100ml IV soln 90 ML IV SCH ×2 (09:55→20:00)
[2020-11-06] MEDS: folic acid 1mg/0.2ml inj IV SCH (09:55)
[2020-11-06] MEDS: normal saline 1000ml 1,000 ML IV SCH ×2 (09:56→15:40)
[2020-11-06] MEDS ORDERED: iohexol 350MG/ML 100ml bottle IV ONE (10:29)
[2020-11-06] MEDS: thiamine inj. 100 MG in normal saline 100ml IV soln 100 ML IV SCH (10:51)
[2020-11-06 11:00] VITALS: BP 197/85
[2020-11-06] MEDS: piperacillin/tazo 3.375gm/50ml 50 ML IV SCH ×2 (12:32→18:01)
--- NOTE | 2020-11-06 13:51 | NUR ---
Could not give Vanco 0700 one iv access, paged PICC RN twice, ran other antibiotics first. Patient left for CTA then MRI. RNs are out of ratio 5:1.
[2020-11-06 18:00] VITALS: BP 184/87
--- NOTE | 2020-11-06 18:36 | NUR ---
Problems reprioritized. Patient report given, questions answered & plan of care reviewed with Danielle RN. Patient stable at transfer of care.
[2020-11-06 22:00] VITALS: BP 156/95
[2020-11-06] MEDS ORDERED: VANCOMYCIN LEVEL IV ONE (22:30)
[2020-11-07] MEDS: vancomycin/NS 1 GM ADD-VANTAGE 250 ML IV SCH (00:21)
[2020-11-07] MEDS: normal saline 1000ml 1,000 ML IV SCH ×3 (01:40→21:40)
[2020-11-07 02:00] VITALS: BP 128/78
[2020-11-07] MEDS: piperacillin/tazo 3.375gm/50ml 50 ML IV SCH ×3 (02:03→15:58)
[2020-11-07] MEDS: ipratropium/albuterol 3ml nebule NEB SCH ×6 (03:05→23:18)
--- NOTE | 2020-11-07 06:22 | NUR ---
Problems reprioritized. Patient report given, questions answered & plan of care reviewed with Bala.
[2020-11-07 06:36] LABS: BASOPHILS # (AUTO) 0.2 X10'3 (0-0.2); BASOPHILS % (AUTO) 1.3 % (0-1); EOSINOPHILS # (AUTO) 0.2 X10'3 (0-0.9); EOSINOPHILS % (AUTO) 1.4 % (0-6); HEMATOCRIT 33.9 % (42.0-52.0); HEMOGLOBIN 11.5 g/dl (14.0-17.9); LYMPHOCYTES # (AUTO) 1.1 X10'3 (1.1-4.8); LYMPHOCYTES % (AUTO) 8.8 % (21-51); MEAN CORPUSCULAR HEMOGLOBIN 33.7 PG (27.0-31.0); MEAN CORPUSCULAR HGB CONC 33.8 g/dL (33.0-36.5); MEAN CORPUSCULAR VOLUME 99.7 FL (78-98); MEAN PLATELET VOLUME 6.5 FL (7.4-10.4); MONOCYTES # (AUTO) 0.9 X10'3 (0-0.9); MONOCYTES % (AUTO) 7.7 % (2-12); NEUTROPHILS # (AUTO) 9.7 X10'3 (1.8-7.7); NEUTROPHILS % (AUTO) 80.8 % (42-75); PLATELET COUNT 516 X10'3 (140-440)
[2020-11-07 06:49] LABS: PARTIAL THROMBOPLASTIN TIME 31 SECONDS (22-32)
[2020-11-07 06:53] LABS: ALANINE AMINOTRANSFERASE 52 U/L (12-78); ALBUMIN 1.7 G/DL (3.4-5.0); ALBUMIN/GLOBULIN RATIO 0.4 (1.1-1.5); ALKALINE PHOSPHATASE 97 IU/L (46-116); ANION GAP 13 (8-16); ASPARTATE AMINO TRANSFERASE 39 U/L (10-37); BILIRUBIN,TOTAL 0.9 MG/DL (0.1-1.0); BLOOD UREA NITROGEN 2 MG/DL (7-18); BUN/CREATININE RATIO 3.8 (5.4-32.0); CALCIUM 8.5 MG/DL (8.5-10.1); CHLORIDE 99 MMOL/L (99-107); CREATININE 0.53 MG/DL (0.60-1.10); GLUCOSE 68 MG/DL (70-104); PHOSPHORUS 4.2 MG/DL (2.3-4.5); POTASSIUM 3.1 MMOL/L (3.5-5.1); SODIUM 137 MMOL/L (135-145); TOTAL CARBON DIOXIDE 24.6 MMOL/L (24-32); TOTAL PROTEIN 6.5 G/DL (6.4-8.2); eGFR > 90 ML/MIN
--- NOTE | 2020-11-07 06:58 | NUR ---
Patient in room PCU 3025. I have received report from Danielle FLOREZ and had the opportunity to ask questions and assume patient care. Pt is semi fowlers in bed, on left side, feet to the left. pt babbling to nurse that they should go run outside. reorientation completed with scant effectiveness. safety measures in place. tab alarm on pt. bed alarm on pt. no sob. IV patent. no s/sx acute distress. therapeutic conversation employed and effective. no s/sx sz activity.
[2020-11-07 07:08] LABS: HBSAG SCREEN Negative (Negative); HEP A AB, IGM Negative (Negative)
[2020-11-07 07:12] VITALS: BP 154/99
[2020-11-07] MEDS ORDERED: POTASSIUM BICARB 20meq eff tab 20 MEQ TABLET.EFF PO PRN ×2 (07:45)
[2020-11-07] MEDS: K, MAG and/or Phos replacement - Verify level? MC SCH (08:00)
[2020-11-07] MEDS: multi-vitamin w/minerals & ferrous gluconate 9 MG/15 ML oral LIQUID OGT SCH (08:00)
[2020-11-07] MEDS: K and/or MAG REPLACEMENT MC SCH (08:00)
[2020-11-07] MEDS: pantoprazole 40 MG vial IV SCH (08:04)
[2020-11-07] MEDS: nicotine 21mg patch - 24 hr TD SCH (08:04)
[2020-11-07] MEDS: heparin, porcine 5000 units/ml vial SQ SCH ×2 (08:05→21:01)
[2020-11-07] MEDS: lactobacillus rhamnosus 10,000 MMU CELLS/CAPSULE OGT SCH ×2 (08:05→20:00)
[2020-11-07] MEDS: amLODIPine 5mg tablet PO SCH (08:06)
[2020-11-07] MEDS: LORazepam 2 mg/ml vial IV PRN ×2 (08:06→15:58)
[2020-11-07] MEDS: docusate sodium 100mg/10ml UD cup OGT SCH ×2 (08:06→20:00)
[2020-11-07] MEDS: folic acid 1mg/0.2ml inj IV SCH (08:07)
[2020-11-07] MEDS: levetiracetam inj 1,000 MG in normal saline 100ml IV soln 90 ML IV SCH (08:08)
[2020-11-07] MEDS ORDERED: POTASSIUM BICARB 20meq eff tab 20 MEQ TABLET.EFF OGT PRN ×2 (08:10→08:15)
[2020-11-07] MEDS: thiamine inj. 100 MG in normal saline 100ml IV soln 100 ML IV SCH (08:13)
--- NOTE | 2020-11-07 08:34 | NUR ---
pharmacy paged. Vanco dose not on unit, MVT will not scan. "good morning, May i please have the new dose of vanco, i believe it is 1250. i only have the 1Gm dose here. also, the liquid 15ml mvt with minerals will not scan, thus not given. Thanks, Chantelle"
--- NOTE | 2020-11-07 09:06 | NUR ---
RFA IV infiltrated. attempt made to place IV on LUE. not successful. PICC nurse paged and immediately called back. PICC nurse concerned regarding possible clot to RUE. Dr. Huitron Paged.
--- NOTE | 2020-11-07 09:10 | NUR ---
Dr. Huitron Paged and immediately called back. "PAGER ID: [phone] MESSAGE: RE: Alec Maya: [id number]: RUE swollen and taught. PICC nurse requesting venous ultrasound study of RUE to R/O blood clot. Thanks, -Chantelle #[phone]" Dr. Huitron give order for Venous US study of RUE.
--- NOTE | 2020-11-07 09:14 | NUR ---
ultrasound paged "RE: Alec Maya; [id number]: Doc order'd ultrasound venous study of RUE to r/o blood clot. RUE swollen with taught skin. THanks, -Chantelle #[phone]"
[2020-11-07 11:00] VITALS: BP 165/87
--- NOTE | 2020-11-07 11:28 | NUR ---
Reassessment: Pt seen by ST 11/06 and recommended continue Puree w/ thin liquids. Pt documented to be confused and A&O x 2. Pt w/ mostly 0% meal intake since 11/05 though was ~50% prior to that. Pt also noted to need maxium assist w/ meals. Pt may benefit from ONS at this time during periods of meal refusal. LB 11/06. Will continue to monitor PO trends Rec: 1. Continue Puree diet as tolerated; texture per ST recs 2. Ensure Enlive TID to provide 1050kcals and 60g protein if consumed 100% 3. thiamin, folic, MVI for etoh hx 4. routine bowel care 5. Weekly wts Addendum: 11/07/20 at [address] Amended: Links added.
--- NOTE | 2020-11-07 12:59 | NUR ---
PICC nurse placed IV to RUE (above previous infiltrated IV). Vanco and zosyn to be administered zoe. items not compatible, thus vanco then zosyn. mvt dose continues to not be available on the floor to be administered.
[2020-11-07] MEDS ORDERED: lactose-reduced food (Ensure Enlive) - 237ml bottle PO SCH (13:00)
[2020-11-07] MEDS: VANCOmycin 1250MG/NS 250ml Bag 250 ML IV SCH ×2 (13:14→19:46)
--- NOTE | 2020-11-07 14:23 | NUR ---
Patient in room PCU 3025. I have received report from VIKKI Lockhart and had the opportunity to ask questions and assume patient care.
--- NOTE | 2020-11-07 14:24 | NUR ---
Problems reprioritized. Patient report given, questions answered & plan of care reviewed with Mariama FLOREZ. Pt semi folwers in bed. no sob. no s/sx acute distress. safety measures in place
[2020-11-07 15:00] VITALS: BP 145/82
--- NOTE | 2020-11-07 16:30 | NUR ---
Called [facility] and gave report to VIKKI Tilley.
[2020-11-07 18:00] VITALS: BP 166/91
--- NOTE | 2020-11-07 18:37 | NUR ---
Problems reprioritized. Patient report given, questions answered & plan of care reviewed with VIKKI Pearl. Pt laying in bed, no signs of distress noted at this time. All pt needs met at this time.
--- NOTE | 2020-11-07 18:40 | NUR ---
Patient in room PCU 3025. I have received report from Mariama FLOREZ and had the opportunity to ask questions and assume patient care.
--- NOTE | 2020-11-07 20:52 | NUR ---
Vanco stopped. Mid line has infiltrated.
[2020-11-07 22:00] VITALS: BP 154/87
[2020-11-08] MEDS: levetiracetam inj 1,000 MG in normal saline 100ml IV soln 90 ML IV SCH (00:27)
--- NOTE | 2020-11-08 00:33 | NUR ---
After 3rd opinion, mid line ok to use as swelling is to lower forearm. Will cath up on IV meds while continuing to monitor RUE.
[2020-11-08] MEDS: LORazepam 2 mg/ml vial IV PRN (00:44)
[2020-11-08] MEDS: piperacillin/tazo 3.375gm/50ml 50 ML IV SCH (00:52)
[2020-11-08 02:00] VITALS: BP 168/88
[2020-11-08] MEDS: VANCOmycin 1250MG/NS 250ml Bag 250 ML IV SCH (02:43)
[2020-11-08] MEDS: ipratropium/albuterol 3ml nebule NEB SCH (03:00)
[2020-11-08] MEDS: potassium Cl 40MEQ/1/2NS 520ml 520 ML IV PRN (04:46)
[2020-11-08] MEDS: K and/or MAG REPLACEMENT MC SCH (04:51)
[2020-11-08] MEDS: hydrALAZINE 20mg/ml inj. IV PRN (05:52)
--- NOTE | 2020-11-08 06:20 | NUR ---
Problems reprioritized. Patient report given, questions answered & plan of care reviewed with Mariama Lamar
[2020-11-08 07:00] VITALS: BP 147/91
--- NOTE | 2020-11-08 07:00 | NUR ---
Patient in room PCU 3025. I have received report from Ryanne FLOREZ and had the opportunity to ask questions and assume patient care.
--- NOTE | 2020-11-08 07:10 | NUR ---
Patient OK to discharge to [facility] per MD orders. Patient was transported via ambulance accompanied by two [facility] staff. Patient was transferred via gurney. All paperwork was completed and sent with [facility]. FC and Midline intact and capped accordingly. Patient on 2LNC, IV line disconnected and capped. FC, intact and sent with patient. All belongings were collected and sent with patient.
[2020-11-08] MEDS ORDERED: VANCOMYCIN LEVEL IV ONE (07:30)
== END 2020-11-08 07:46 | DRG 53 ==
LOC: ER 20:09 → ED HOLD 10-26 04:50 → PCU 3S 10-26 07:45 → ICU 2S 10-27 10:19 → PCU 3S 11-03 16:39
PROVIDERS: ADMIT Family Medicine; ATTEND Internal Medicine
PROC: 4A10X4Z Monitoring of Central Nervous Electrical Activity, External Approach (ICD-10-PCS; 2020-10-26)
PROC: 0HQ0XZZ Repair Scalp Skin, External Approach (ICD-10-PCS; 2020-10-26)
PROC: 5A09357 Assistance with Respiratory Ventilation, Less than 24 Consecutive Hours, Continuous Positive Airway Pressure (ICD-10-PCS; 2020-10-26)
PROC: 5A1955Z Respiratory Ventilation, Greater than 96 Consecutive Hours (ICD-10-PCS; principal; 2020-10-27)
PROC: 0BH17EZ Insertion of Endotracheal Airway into Trachea, Via Natural or Artificial Opening (ICD-10-PCS; 2020-10-27)
PROC: 5A09357 Assistance with Respiratory Ventilation, Less than 24 Consecutive Hours, Continuous Positive Airway Pressure (ICD-10-PCS; 2020-10-27)
PROC: 5A0935A Assistance with Respiratory Ventilation, Less than 24 Consecutive Hours, High Flow/Velocity Cannula (ICD-10-PCS; 2020-10-27)
PROC: BW281ZZ Computerized Tomography (CT Scan) of Head using Low Osmolar Contrast (ICD-10-PCS; 2020-10-27)
PROC: B32T1ZZ Computerized Tomography (CT Scan) of Left Pulmonary Artery using Low Osmolar Contrast (ICD-10-PCS; 2020-11-06)
PROC: B3201ZZ Computerized Tomography (CT Scan) of Thoracic Aorta using Low Osmolar Contrast (ICD-10-PCS; 2020-11-06)
PROC: B32S1ZZ Computerized Tomography (CT Scan) of Right Pulmonary Artery using Low Osmolar Contrast (ICD-10-PCS; 2020-11-06)
DX: G40.909 Epilepsy, unspecified, not intractable, without status epilepticus (principal); R40.20 Unspecified coma; J69.0 Pneumonitis due to inhalation of food and vomit; J80 Acute respiratory distress syndrome; N17.9 Acute kidney failure, unspecified; E83.42 Hypomagnesemia; F10.231 Alcohol dependence with withdrawal delirium; E87.2 Acidosis; E88.09 Other disorders of plasma-protein metabolism, not elsewhere classified; E87.6 Hypokalemia; E83.51 Hypocalcemia; E87.1 Hypo-osmolality and hyponatremia; I10 Essential (primary) hypertension; B95.2 Enterococcus as the cause of diseases classified elsewhere; Z20.822 Contact with and (suspected) exposure to COVID-19; R91.8 Other nonspecific abnormal finding of lung field; J44.9 Chronic obstructive pulmonary disease, unspecified; F17.210 Nicotine dependence, cigarettes, uncomplicated; S01.81XA Laceration without foreign body of other part of head, initial encounter; W01.0XXA Fall on same level from slipping, tripping and stumbling without subsequent striking against object, initial encounter; Y93.89 Activity, other specified; Y92.89 Other specified places as the place of occurrence of the external cause; Y99.8 Other external cause status
CPT/HCPCS: 12013; 36415; 36600; 70450; 70470; 70551; 71045; 71275; 72125; 74018; 76937; 80048; 80053; 80061; 80177; 80202; 80305; 80320; 81001; 81003; 82140; 82150; 82550; 82803; 82948; 83036; 83605; 83690; 83735; 83880; 84075; 84080; 84100; 84132; 84134; 84145; 84443; 84478; 85018; 85025; 85610; 85730; 86703; 86705; 86706; 86709; 86803; 87040; 87077; 87088; 87186; 87340; 87635; 90715; 92508; 92616; 93005; 93308; 93971; 94002; 94003; 94640; 94660; 94667; 94668; 94760; 94799; 95816; 97110; 97116; 97162; 97530; 99291; C9113; G0378; J0290; J0360; J0690; J1630; J1644; J1953; J2060; J2270; J2543; J2704; J3370; J3411; J3475; J3480; J3490; J7030; Q9967

== ENCOUNTER 2021-06-03 07:47 | Outpatient (CLI) | payer MEDICAID ==
[~2021-06-03 07:47] MED LIST: NO HOME MEDS
== END 2021-06-03 23:59 | disposition home or self-care (01) ==
LOC: RAD 07:47
PROVIDERS: ATTEND Psychiatry & Neurology Neurology
DX: R56.9 Unspecified convulsions (principal)
CPT/HCPCS: 95819

== ENCOUNTER 2021-06-30 22:55 | Emergency (ER) | payer MEDICAID ==
[~2021-06-30] VITALS: Ht 182.9 cm; Wt 88.6 kg
[2021-06-30 23:06] VITALS: BP 140/81
[2021-07-01 00:22] LABS: BASOPHILS # (AUTO) 0.1 X10'3 (0-0.2); BASOPHILS % (AUTO) 0.5 % (0-1); EOSINOPHILS # (AUTO) 0.2 X10'3 (0-0.9); EOSINOPHILS % (AUTO) 1.3 % (0-6); HEMATOCRIT 40.5 % (42.0-52.0); HEMOGLOBIN 13.9 g/dl (14.0-17.9); LYMPHOCYTES # (AUTO) 1.9 X10'3 (1.1-4.8); LYMPHOCYTES % (AUTO) 16.3 % (21-51); MEAN CORPUSCULAR HEMOGLOBIN 30.9 PG (27.0-31.0); MEAN CORPUSCULAR HGB CONC 34.2 g/dL (33.0-36.5); MEAN CORPUSCULAR VOLUME 90.2 FL (78-98); MEAN PLATELET VOLUME 6.8 FL (7.4-10.4); MONOCYTES # (AUTO) 0.7 X10'3 (0-0.9); MONOCYTES % (AUTO) 6.3 % (2-12); NEUTROPHILS # (AUTO) 8.9 X10'3 (1.8-7.7); NEUTROPHILS % (AUTO) 75.6 % (42-75); PLATELET COUNT 297 X10'3 (140-440); RED BLOOD COUNT 4.49 X10'6 (4.70-6.10); RED CELL DISTRIBUTION WIDTH 13.5 % (11.5-14.5); WHITE BLOOD COUNT 11.8 X10'3 (4.5-11.0)
[2021-07-01 00:28] LABS: ALANINE AMINOTRANSFERASE 21 U/L (12-78); ALBUMIN 3.8 G/DL (3.4-5.0); ALBUMIN/GLOBULIN RATIO 1.1 (1.1-1.5); ALKALINE PHOSPHATASE 88 IU/L (46-116); ANION GAP 7 (8-16); ASPARTATE AMINO TRANSFERASE 15 U/L (10-37); BILIRUBIN,TOTAL 0.3 MG/DL (0.1-1.0); BLOOD UREA NITROGEN 12 MG/DL (7-18); C-REACTIVE PROTEIN 1.67 MG/DL (0.0-0.5); CALCIUM 8.8 MG/DL (8.5-10.1); CHLORIDE 99 MMOL/L (99-107); ETHANOL < 0.010 GM/DL (0.0-0.010); GLUCOSE 112 MG/DL (70-104); MAGNESIUM 1.8 MG/DL (1.5-2.4); POTASSIUM 3.4 MMOL/L (3.5-5.1); SODIUM 133 MMOL/L (135-145); TOTAL CARBON DIOXIDE 27.5 MMOL/L (24-32); TOTAL PROTEIN 7.3 G/DL (6.4-8.2); eGFR 78 ML/MIN
== END 2021-07-01 00:15 | disposition left against medical advice (07) ==
LOC: ER 22:56
DX: R56.9 Unspecified convulsions (principal); Z53.21 Procedure and treatment not carried out due to patient leaving prior to being seen by health care provider
CPT/HCPCS: 36415; 80053; 80320; 83735; 85025; 85651; 86140